=== PATIENT | male | born 1960 | race Caucasian/White ===

== ENCOUNTER 2022-03-26 11:04 | Outpatient (REF) | payer OTHER, SELFPAY ==
[2022-03-26 11:08] LABS: MANUAL DIFF FLAG NO
[2022-03-26 11:30] LABS: Basophils Percent Auto 0.7 % (0-2); Eosinophils Absolute Auto 0.1 X10*3/uL (0.0-0.4); Eosinophils Percent Auto 2.3 % (0-4); Hematocrit 47.5 % (42.0-52.0); Hemoglobin 15.4 g/dl (14.0-18.0); Imm Gran Abs Auto 0.01 X10*3/uL (0.00-0.03); Imm Gran Pct Auto 0.2 % (0.0-0.4); Lymphocytes Absolute Auto 2.4 X10*3/uL (1.2-4.9); Mean Corpuscular HGB Conc 32.4 g/dl (31.0-36.0); Mean Corpuscular Hemoglobin 29.1 pg (27.0-33.0); Mean Corpuscular Volume 89.8 fL (80.0-98.0); Mean Platelet Volume 12.1 fL (9.4-12.4); Monocytes Percent Auto 17.1 % (2-11); Neutrophils Absolute Auto 2.4 x10*3/uL (2.0-8.3); Neutrophils Percent Auto 39.7 % (45-73); Platelet Count 297 X10*3/uL (160-400); Red Blood Count 5.29 X10*6/uL (4.60-5.80); Red Cell Distribution Width 13.7 % (11.0-16.0)
[2022-03-26 11:46] LABS: Appearance Urine CLEAR; Color Urine YELLOW; Glucose Urine UA NEG (NEG); Leukocyte Esterase Urine NEG (NEG); Nitrite Urine NEG (NEG); PH 5.5 (5.0-8.0); Specific Gravity - Urine >= 1.030 (1.005-1.025); Urine Blood NEG (NEG); Urine Ketones NEG (NEG); Urine Protein NEG (NEG-TRACE)
[2022-03-26 12:02] LABS: Alanine Aminotransferase 12 U/L (0-40); Albumin Level 4.1 g/dL (3.5-5.0); Alkaline Phosphatase 60 U/L (39-117); Anion Gap 13 (12-20); Aspartate Amino Transferase 24 U/L (5-37); Bilirubin Total 0.4 mg/dL (0.0-1.0); Blood Urea Nitrogen 22 mg/dL (9-16); Calcium 9.5 mg/dL (8.4-10.2); Carbon Dioxide 28 mmol/L (22-29); Chloride 104 mmol/L (96-108); Cholesterol 176 mg/dL; Estimated Glomerular Filt Rate > 60; Glucose Fasting 96 mg/dL (60-99); HDL Cholesterol 51 mg/dL; LDL Cholesterol Calculated 108 mg/dl; PSA,Total (Free>4and<10) 0.69 ng/mL (0.00-4.00); Potassium 4.6 mmol/L (3.3-5.1); Sodium 140 mmol/L (135-145); Total Protein 7.3 g/dL (6.5-8.0); Triglycerides 89 mg/dL
[2022-03-26 12:08] LABS: Mucus Urine 2+ /LPF; RBC Urine 0 /HPF (0); WBC Urine 0-2 /HPF (0-4)
== END 2022-03-26 11:05 | disposition home or self-care (01) ==
LOC: HO.LNP 11:04
PROVIDERS: Visit Provider Internal Medicine
DX: Z00.00 Encounter for general adult medical examination without abnormal findings (principal); Z13.220 Encounter for screening for lipoid disorders; Z12.5 Encounter for screening for malignant neoplasm of prostate
CPT/HCPCS: 80053; 80061; 81001; 84153; 85025

== ENCOUNTER 2023-02-25 11:07 | Outpatient (REF) | payer OTHER, SELFPAY ==
[2023-02-25 11:10] LABS: MANUAL DIFF FLAG NO
[2023-02-25 11:45] LABS: Basophils Absolute Auto 0.1 X10*3/uL (0.0-0.2); Basophils Percent Auto 0.8 % (0-2); Eosinophils Absolute Auto 0.1 X10*3/uL (0.0-0.4); Eosinophils Percent Auto 1.9 % (0-4); Hematocrit 40.8 % (42.0-52.0); Hemoglobin 13.4 g/dl (14.0-18.0); Imm Gran Abs Auto 0.01 X10*3/uL (0.00-0.03); Imm Gran Pct Auto 0.2 % (0.0-0.4); Lymphocytes Absolute Auto 1.9 X10*3/uL (1.2-4.9); Lymphocytes Percent Auto 30.1 % (20-40); Mean Corpuscular HGB Conc 32.8 g/dl (31.0-36.0); Mean Corpuscular Hemoglobin 29.9 pg (27.0-33.0); Mean Corpuscular Volume 91.1 fL (80.0-98.0); Mean Platelet Volume 11.9 fL (9.4-12.4); Monocytes Percent Auto 15.9 % (2-11); Neutrophils Absolute Auto 3.3 x10*3/uL (2.0-8.3); Neutrophils Percent Auto 51.1 % (45-73); Platelet Count 235 X10*3/uL (160-400); Red Blood Count 4.48 X10*6/uL (4.60-5.80); Red Cell Distribution Width 13.4 % (11.0-16.0); White Blood Count 6.4 X10*3/uL (4.8-10.8)
[2023-02-25 11:46] LABS: Appearance Urine Clear; Color Urine Yellow; Glucose Urine UA Negative (Negative); Leukocyte Esterase Urine Trace (Negative); Nitrite Urine Negative (Negative); Specific Gravity - Urine 1.015 (1.005-1.025); UMIC TRIGGER UACC YES; Urine Blood Negative (Negative); Urine Ketones Negative (Negative); Urine Protein Negative (Neg-Trace)
[2023-02-25 11:50] LABS: Bacteria Urine None Seen (None Seen); Hyaline Casts Urine 0-2 /LPF (0-2); RBC Urine 0-2 /HPF (0-2); Squamous Epithelial Cell Urine 0-2 /HPF (0-2); WBC Urine 0-5 /HPF (0-5)
[2023-02-25 12:03] LABS: Alanine Aminotransferase 10 U/L (0-40); Albumin Level 3.9 g/dL (3.5-5.0); Alkaline Phosphatase 51 U/L (39-117); Anion Gap 12 (12-20); Aspartate Amino Transferase 23 U/L (5-37); Blood Urea Nitrogen 17 mg/dL (9-16); Calcium 9.7 mg/dL (8.4-10.2); Carbon Dioxide 29 mmol/L (22-29); Chloride 105 mmol/L (96-108); Cholesterol 189 mg/dL; Estimated Glomerular Filt Rate > 60; Glucose Fasting 87 mg/dL (60-99); HDL Cholesterol 67 mg/dL; LDL Cholesterol Calculated 106 mg/dl; Potassium 4.6 mmol/L (3.3-5.1); Sodium 141 mmol/L (135-145); Total Protein 6.7 g/dL (6.5-8.0); Triglycerides 84 mg/dL
[2023-02-25 12:27] LABS: PSA,Total (Free>4and<10) 0.97 ng/mL (0.00-4.00)
== END 2023-02-25 11:08 | disposition home or self-care (01) ==
LOC: HO.LNP 11:07
PROVIDERS: Visit Provider Internal Medicine
DX: Z00.00 Encounter for general adult medical examination without abnormal findings (principal); Z12.5 Encounter for screening for malignant neoplasm of prostate
CPT/HCPCS: 80053; 80061; 81001; 84153; 85025

== ENCOUNTER 2023-10-28 13:31 | Outpatient (AMB) | payer BC, SELFPAY ==
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
[2023-10-28 13:45] VITALS: BP 160/65; PULSE 64; BMI 29.7
== END 2023-10-28 14:21 | disposition home or self-care (01) ==
PROVIDERS: PCP Pediatrics; Referring Provider Internal Medicine; Visit Provider Surgery
DX: K64.1 Second degree hemorrhoids (principal)
CPT/HCPCS: 46600; 99204

== ENCOUNTER → 2023-10-28 13:31 | Outpatient (BNVA) | payer BC, SELFPAY | PROVIDERS: PCP Pediatrics; Referring Provider Internal Medicine; Visit Provider Surgery | DX: K64.1 Second degree hemorrhoids (principal) | CPT/HCPCS: 46600 ==

== ENCOUNTER 2023-11-11 11:30 | Outpatient (AMB) | payer BC, SELFPAY ==
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
[2023-11-11 11:41] VITALS: BP 148/87; PULSE 65
== END 2023-11-11 12:09 | disposition home or self-care (01) ==
PROVIDERS: PCP Pediatrics; Visit Provider Surgery
DX: K64.1 Second degree hemorrhoids (principal)
CPT/HCPCS: 46600; 99214

== ENCOUNTER → 2023-11-11 11:30 | Outpatient (BNVA) | payer BC, SELFPAY | PROVIDERS: PCP Pediatrics; Visit Provider Surgery | DX: K64.1 Second degree hemorrhoids (principal) | CPT/HCPCS: 46600 ==

== ENCOUNTER 2023-11-23 05:58 | Day surgery (SDC) | payer BC, SELFPAY ==
[2023-11-23] VITALS (8 sets, daily range): BP systolic 104–163; BP diastolic 71–91; PULSE 50–59; RESP 16–18; TEMP 36.2–36.4; O2SAT 97–100; BMI 28.7
[2023-11-23] MEDS: Lactated Ringers 1,000 ML 100 ML IVCONT (06:42)
--- NOTE | 2023-11-23 07:19 | HO.ANESPROP2 ---
HPI - Anesthesia Eval Consult details Narrative: for hemorrhoidectomy PMFSH Active Problems Active Problems: All Active Problems (Updated 10/28/23 @ 14:19 by Rodriguez Dupont MD) Bleeding grade II hemorrhoids (Acute) Family History Family history of problems with anesthesia: No Surgical History Surgical History History of bilateral total hip arthroplasty Hx of splenectomy History of Problems with Anesthesia: No Social History Social History Alcohol intake: current Alcohol intake frequency: holidays/special occasions only Patient Tobacco Use Status: Never used Tobacco Use of substances other than those prescribed or required for medical reasons: No Are you DNR?: No Advance Directives: No Advance Directives Information Provided: Yes Meds Allergies Allergy/AdvReac Type Severity Reaction Status Date / Time hydromorphone [From Dilaudid] AdvReac Nausea Verified 11/23/23 06:17 Active Medications: Current Medications Lactated Ringer's (Lr) 1,000 mls @ 100 mls/hr IVCONT .Q10H FRANCISCO Last Admin: 11/23/23 06:42 Dose: 100 mls/hr Exam Height,Weight and Vital Signs: Height 5 ft 3.5 in Weight 74.797 kg Last Vital Signs Temp 97.2 F 11/23/23 06:22 Pulse 59 11/23/23 06:22 Resp 18 11/23/23 06:22 BP 163/91 H 11/23/23 06:22 Pulse Ox 100 11/23/23 06:22 O2 Del Method Room Air 11/23/23 06:22 Airway Mallampati Class: I TM Dist: >3cm Neck ROM: Full Loose/Missing/Broken Teeth: No Heart: ok Lungs: ok Assessment and Plan Assessment Anesthesia Assessment: Anesthesia Plan Discussed and Chart Reviewed Final Anesthetic Review Family History of Problems with Anesthesia: No History of Problems with Anesthesia: No NPO: Yes ASA Class: II Final Preanesthetic Review: No Changes in Pt Med Stat, Meds/Allgs Chart Reviewed, Consent Obtained/Reviewed and Anes Risks/Benef Reviewed Patient Risk: Low Procedure Risk: Low Anesthetic Plan Anesthetic Plan: GA and Agree w/ Assess. and Plan Disposition: Standard PACU
--- NOTE | 2023-11-23 07:20 | MHC.SHP ---
Pre-Procedural Eval Section A - 24 Hr Update-Section A only Date of Service: 11/23/23 The patient is an INPATIENT: No Changes since office visit: Yes Patient answered all questions; No Cold of Flu in the past 2 weeks, No New Medical Problems and No Changes in Medication The patient has been examined within 24 hours of the surgical procedure. The History & Physical has been completed within 30 days and I have reviewed it.: Yes Section B - Complete if H&P > 30 days Chief Complaint: Second degree hemorrhoids Allergies: Allergies Allergy/AdvReac Type Severity Reaction Status Date / Time hydromorphone [From Dilaudid] AdvReac Nausea Verified 11/23/23 06:17 Plan Diagnosis/Plan: Unchanged I have reviewed the history and physical and performed a pertinent physical examination on my patient. No changes have occurred unless specified. Time Spent With Patient Time: Total time managing care of this patient today ____ minutes.
--- NOTE | 2023-11-23 08:16 | P.OP_ITS ---
Operative Note Operative Note Date of Service: 11/23/23 Narrative: Preoperative diagnosis: Bleeding hemorrhoid Postoperative diagnosis: Same Procedure: Hemorrhoidectomy Surgeon: Rodriguez Dupont MD Certified Medical Technician: DAFNE [place] Anesthesia: General LMA Indications for procedure: 63-year-old male patient presenting with complaints of bleeding hemorrhoids especially while at work. He had several episodes of heavy bleeding. On examination he is found to have a single large posterior wall hemorrhoid. Hemorrhoid was found to be too sensitive to allow for banding in the office. Operative findings: Large hemorrhoid in the posterior wall. Specimen: Hemorrhoids Estimated blood loss: 2 mL Complications: None Procedure details: Patient was brought to the OR and placed in a prone position. After administering general anesthesia, the patient's perianal region was prepped with Betadine and draped in a sterile fashion. A surgical time-out was called the consent confirmed. Patient received preoperative antibiotics and Venodyne boots were in place. Local anesthesia was infiltrated in the posterior wall adjacent to the hemorrhoid. An anoscope was inserted and the hemorrhoid identified. This was then grasped with a triangular clamp. A Susan clamp was then placed at the base of the hemorrhoid. A running locked 3-0 chromic suture was then placed below the Susan clamp using a baseball-type stitch. The hemorrhoid was then excised and sent to pathology for further examination. The suture was then run backward in a running lock stitch to assure adequate hemostasis. Good hemostasis was achieved at the end of the procedure. Anal region was examined once again and no additional hemorrhoids were identified. Packing of 4 x 4 gauze and Xeroform was then inserted into the anal canal. This was then covered with a 4 x 4 gauze and ABD. The patient tolerated the procedure well. He is welcome from anesthesia and placed in a supine position. Sponge, instrument, and needle counts reported as correct. Transferred to PACU in stable condition.
== END 2023-11-23 09:59 | disposition home or self-care (01) ==
PROVIDERS: PCP Internal Medicine; Visit Provider Surgery
PROC: (CPT 46255; principal; 2023-11-23 07:30)
DX: K64.1 Second degree hemorrhoids (principal); Z90.81 Acquired absence of spleen; Z98.890 Other specified postprocedural states; Z88.5 Allergy status to narcotic agent; Z79.899 Other long term (current) drug therapy
CPT/HCPCS: 46255; 88304; J0665; J1885; J2405; J2704; J3010

== ENCOUNTER → 2023-11-23 05:58 | Outpatient (BNV) | payer BC, SELFPAY | PROVIDERS: PCP Internal Medicine; Visit Provider Surgery | DX: K64.1 Second degree hemorrhoids (principal) | CPT/HCPCS: 46255 ==

== ENCOUNTER 2023-12-01 14:59 | Outpatient (AMB) | payer BC, SELFPAY ==
--- NOTE | 2023-12-01 15:01 | A.OFFVIS_ITS ---
Intake Vital Signs 12/01/23 15:07 Height 5 ft 3.5 in Weight 167 lb BMI 29.1 BP 156/90 H Blood Pressure Location Lt brachial Position Sitting Pulse 100 Intake Visit Reasons: S/P hemorrhoidectomy Intake Note: Patient is seen in office for post op assessment post hemorrhoidectomy. 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 He had several episodes of bleeding postoperatively however denies any bleeding since Tuesday. He is moving his bowels on a daily basis and has some pain with bowel movements. Overall he feels improved. He is planning on returning to work next , 12/08/2023. [facility] Surgical History H/O: hemorrhoidectomy (11/23/23) History of bilateral total hip arthroplasty Hx of splenectomy Social History Alcohol intake: current Alcohol intake frequency: holidays/special occasions only Patient Tobacco Use Status: Never used Tobacco Physical Exam Vital Signs: Last Vital Signs Pulse 100 12/01/23 15:07 BP 156/90 H 12/01/23 15:07 BMI result Body Mass Index 29.1 Const General: no acute distress GI Other: Rectal examination reveals clean perirectal skin with no erythema and no evidence of bleeding. Skin Other: Warm, dry, no rashes Assessment & Plan Assessment & Plan (1) Bleeding grade II hemorrhoids: Code(s): K64.1 - Second degree hemorrhoids Plan Patient returns 1 week following hemorrhoidectomy. His wounds are clean and intact without evidence of infection. He should continue with the warm soaks at least daily. He should follow up in 1 month for a final postoperative visit. Coding Level of Care Code Global (19020) Diagnoses Bleeding grade II hemorrhoids K64.1
[2023-12-01 15:07] VITALS: BP 156/90; PULSE 100; BMI 29.1
== END 2023-12-01 15:19 | disposition home or self-care (01) ==
PROVIDERS: PCP Pediatrics; Visit Provider Surgery
DX: K64.1 Second degree hemorrhoids (principal)
CPT/HCPCS: 99024

== ENCOUNTER → 2023-12-01 14:59 | Outpatient (BNVA) | payer BC, SELFPAY | PROVIDERS: PCP Pediatrics; Visit Provider Surgery ==

== ENCOUNTER 2023-12-29 15:08 | Outpatient (AMB) | payer BC, SELFPAY ==
--- NOTE | 2023-12-29 15:20 | MHC.OFFVIS ---
Vital Signs 12/29/23 15:25 Height 5 ft 3.5 in Weight 164 lb 8 oz BMI 28.7 BP 156/96 H Blood Pressure Location Lt brachial Position Sitting Pulse 71 Intake Visit Reasons: one month post hemorrhoidectomy Intake Note: Patient is seen in office for one month follow up visit, one month post hemorrhoidectomy. 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 He did have 1 episode of bleeding 1 week ago after lifting many cami of hay. This quickly stopped and he has had no further bleeding since this time. He denies any pain and reports normal bowel movements. [facility] Surgical History H/O: hemorrhoidectomy (11/23/23) History of bilateral total hip arthroplasty Hx of splenectomy Social History Alcohol intake: current Alcohol intake frequency: holidays/special occasions only Patient Tobacco Use Status: Never used Tobacco Physical Exam Vital Signs: Last Vital Signs Pulse 71 12/29/23 15:25 BP 156/96 H 12/29/23 15:25 BMI result Body Mass Index 28.7 Const General: no acute distress Nutritional Appearance: well nourished Orientation/consciousness: patient oriented x3 Resp Effort & Inspection: normal respiratory effort GI Other: Rectal exam deferred Inspection: Yes normal to inspection Neuro General: patient oriented x3 Extrem General: Yes no clubbing, cyanosis or edema Assessment & Plan Assessment & Plan (1) Bleeding grade II hemorrhoids: Code(s): K64.1 - Second degree hemorrhoids Category: Medical Plan Patient returns 1 month following hemorrhoidectomy for bleeding hemorrhoids. He had 1 episode of bleeding after performing heavy lifting at home but has had no further bleeding since then. In generally feels much improved and denies any pain or difficulty with bowel movements. He should follow up as needed. Coding Level of Care Code Global (50463) Diagnoses Bleeding grade II hemorrhoids K64.1
[2023-12-29 15:25] VITALS: BP 156/96; PULSE 71; BMI 28.7
== END 2023-12-29 15:31 | disposition home or self-care (01) ==
PROVIDERS: PCP Pediatrics; Visit Provider Surgery
DX: K64.1 Second degree hemorrhoids (principal)
CPT/HCPCS: 99024

== ENCOUNTER → 2023-12-29 15:08 | Outpatient (BNVA) | payer BC, SELFPAY | PROVIDERS: PCP Pediatrics; Visit Provider Surgery | DX: K64.1 Second degree hemorrhoids (principal) ==

== ENCOUNTER 2024-02-28 11:39 | Outpatient (REF) | payer BC, SELFPAY ==
[2024-02-28 11:42] LABS: MANUAL DIFF FLAG NO
[2024-02-28 12:21] LABS: Basophils Absolute Auto 0.1 X10*3/uL (0.0-0.2); Basophils Percent Auto 0.8 % (0-2); Eosinophils Absolute Auto 0.2 X10*3/uL (0.0-0.4); Eosinophils Percent Auto 2.7 % (0-4); Hematocrit 42.1 % (42.0-52.0); Imm Gran Abs Auto 0.01 X10*3/uL (0.00-0.03); Imm Gran Pct Auto 0.1 % (0.0-0.4); Lymphocytes Absolute Auto 2.9 X10*3/uL (1.2-4.9); Lymphocytes Percent Auto 34.8 % (20-40); Mean Corpuscular HGB Conc 33.3 g/dl (31.0-36.0); Mean Corpuscular Hemoglobin 29.8 pg (27.0-33.0); Mean Corpuscular Volume 89.6 fL (80.0-98.0); Mean Platelet Volume 12.5 fL (9.4-12.4); Monocytes Absolute Auto 1.2 X10*3/uL (0.1-1.2); Monocytes Percent Auto 14.1 % (2-11); Neutrophils Percent Auto 47.5 % (45-73); Platelet Count 250 X10*3/uL (160-400); Red Cell Distribution Width 14.6 % (11.0-16.0); White Blood Count 8.4 X10*3/uL (4.8-10.8)
[2024-02-28 12:38] LABS: Alanine Aminotransferase 9 U/L (0-40); Alkaline Phosphatase 54 U/L (39-117); Anion Gap 11 (12-20); Aspartate Amino Transferase 23 U/L (5-37); Bilirubin Total 0.7 mg/dL (0.0-1.0); Blood Urea Nitrogen 18 mg/dL (9-16); Calcium 9.7 mg/dL (8.4-10.2); Carbon Dioxide 29 mmol/L (22-29); Chloride 105 mmol/L (96-108); Cholesterol 194 mg/dL (<200); Estimated Glomerular Filt Rate > 60; Glucose Fasting 92 mg/dL (60-99); HDL Cholesterol 66 mg/dL (>40); LDL Cholesterol Calculated 108 mg/dL (<100); Sodium 141 mmol/L (135-145); Total Protein 7.4 g/dL (6.5-8.0); Triglycerides 103 mg/dL (<150)
[2024-02-28 12:50] LABS: Appearance Urine Clear; Color Urine Yellow; Glucose Urine UA Negative (Negative); Leukocyte Esterase Urine Trace (Negative); Nitrite Urine Negative (Negative); PH 7.5 (5.0-9.0); Specific Gravity - Urine 1.015 (1.005-1.025); UMIC TRIGGER UACC YES; Urine Blood Negative (Negative); Urine Ketones Negative (Negative); Urine Protein Negative (Neg-Trace)
[2024-02-28 12:54] LABS: Bacteria Urine None Seen (None Seen); Hyaline Casts Urine 0-2 /LPF (0-2); RBC Urine 0-2 /HPF (0-2); Squamous Epithelial Cell Urine 0-2 /HPF (0-2); WBC Urine 0-5 /HPF (0-5)
[2024-02-28 12:55] LABS: PSA,Total (Free>4and<10) 1.08 ng/mL (0.00-4.00)
== END 2024-02-28 11:40 | disposition home or self-care (01) ==
LOC: HO.LNP 11:39
PROVIDERS: Visit Provider Internal Medicine
DX: Z00.00 Encounter for general adult medical examination without abnormal findings (principal); Z12.5 Encounter for screening for malignant neoplasm of prostate
CPT/HCPCS: 80053; 80061; 81001; 84153; 85025

== ENCOUNTER 2024-04-27 09:19 | Day surgery (SDC) | payer BC, SELFPAY ==
[2024-04-25 15:24] VITALS: BMI 28.0
--- NOTE | 2024-04-26 12:28 | P.CONAN_ITS ---
Documented by User: Elaina Perez NP 04/26/24 12:28 HPI - Anesthesia Eval Consult details Narrative: 63yo M for Colonoscopy [facility] Active Problems Active Problems: All Active Problems Bleeding grade II hemorrhoids (Acute) Past Medical History Medical History No pertinent past medical history Family History Family history of problems with anesthesia: No Surgical History Surgical History History of hemorrhoidectomy S/P colon resection Hx of hernia repair History of bilateral total hip arthroplasty Hx of splenectomy History of Problems with Anesthesia: No Social History Social History (Updated 04/25/24 @ 15:19 by Aleksandra Wallace RN) Household Members: Spouse Alcohol intake: current Alcohol intake frequency: holidays/special occasions only Patient Tobacco Use Status: Never used Tobacco Use of substances other than those prescribed or required for medical reasons: No Have you been hit, kicked, punched, or otherwise hurt by someone within the past year? If so, by whom?: No Are you DNR?: No Advance Directives: No Advance Directives Information Provided: Yes Recently lost weight without trying: No Nutrition Risks: No Nutritional Risk Poor oral hygiene: No Meds Allergies Allergy/AdvReac Type Severity Reaction Status Date / Time hydromorphone [From Dilaudid] AdvReac Nausea Verified 04/27/24 09:34 Home Medications ?Medication ?Instructions ?Recorded ?Confirmed ?Last Taken ?Type No Known Home Meds 04/25/24 04/27/24 Unknown History Exam Height,Weight and Vital Signs: Height 5 ft 3 in Weight 71.668 kg Assessment and Plan Assessment Anesthesia Assessment: Chart Reviewed Final Anesthetic Review Family History of Problems with Anesthesia: No History of Problems with Anesthesia: No Documented by User: Charlie Smith MD 04/27/24 10:06 [facility] Past Medical History Medical History No pertinent past medical history Surgical History Surgical History History of hemorrhoidectomy S/P colon resection Hx of hernia repair History of bilateral total hip arthroplasty Hx of splenectomy Social History Social History (Updated 04/25/24 @ 15:19 by Aleksandra Wallace RN) Household Members: Spouse Alcohol intake: current Alcohol intake frequency: holidays/special occasions only Patient Tobacco Use Status: Never used Tobacco Use of substances other than those prescribed or required for medical reasons: No Have you been hit, kicked, punched, or otherwise hurt by someone within the past year? If so, by whom?: No Are you DNR?: No Advance Directives: No Advance Directives Information Provided: Yes Recently lost weight without trying: No Nutrition Risks: No Nutritional Risk Poor oral hygiene: No Meds Allergies Allergy/AdvReac Type Severity Reaction Status Date / Time hydromorphone [From Dilaudid] AdvReac Nausea Verified 04/27/24 09:34 Home Medications ?Medication ?Instructions ?Recorded ?Confirmed ?Last Taken ?Type No Known Home Meds 04/25/24 04/27/24 Unknown History Exam Airway Mallampati Class: I TM Dist: >3cm Neck ROM: Full Loose/Missing/Broken Teeth: No Heart: ok Lungs: ok Assessment and Plan Assessment Anesthesia Assessment: Anesthesia Plan Discussed Final Anesthetic Review NPO: Yes ASA Class: II Final Preanesthetic Review: No Changes in Pt Med Stat, Meds/Allgs Chart Reviewed, Consent Obtained/Reviewed and Anes Risks/Benef Reviewed Patient Risk: Low Procedure Risk: Low Anesthetic Plan Anesthetic Plan: MAC: and Agree w/ Assess. and Plan Disposition: Standard PACU
[2024-04-27 09:29] VITALS: BMI 26.9
[2024-04-27] MEDS: Lactated Ringers 1,000 ML 100 ML IVCONT (09:42)
[2024-04-27 09:43] VITALS: BP 170/78; PULSE 46; RESP 16; TEMP 36.1; O2SAT 100
--- NOTE | 2024-04-27 10:31 | MHC.SHP ---
Pre-Procedural Eval Section A - 24 Hr Update-Section A only Date of Service: 04/27/24 Section B - Complete if H&P > 30 days Chief Complaint: Encounter for screening for malignant neoplasm of Details of Present Illness: see H&P no changes Relevant Family History (Specify if Yes): No Relevant Social History: None Medical History: No relevant PMH Allergies: Allergies Allergy/AdvReac Type Severity Reaction Status Date / Time hydromorphone [From Dilaudid] AdvReac Nausea Verified 04/27/24 09:34 Review of Systems Sugical H&P ROS: Negative: Constitution, Cardiovascular, Respiratory, Neurological, Psychiatric, Hem-Onc, Allergic/Immunologic, Gastrointestinal, Genitourinary, Musculoskeletal, Integumentary, Endocrine and Eyes/Ears/Nose/Throat Exam Surgical H&P Exam: Normal: HEENT, Normal: Heart, Normal: Lungs, Normal: Extremities, Normal: Abdomen, Normal: Skin and Normal: Neurological Plan Diagnosis/Plan: Unchanged I have reviewed the history and physical and performed a pertinent physical examination on my patient. No changes have occurred unless specified. Time Spent With Patient Time: Total time managing care of this patient today ____ minutes.
[2024-04-27 10:34] VITALS: BP 97/56; PULSE 62; RESP 18; TEMP 36.2; O2SAT 97
[2024-04-27 10:51] VITALS: BP 111/77; PULSE 58; RESP 18; TEMP 36.3; O2SAT 97
--- NOTE | 2024-04-27 10:58 | OP_ITS ---
DATE OF SERVICE: 04/27/2024 SURGEON: Singh Samuels MD INDICATIONS: Colon cancer screening and prior history of polyps. PREOPERATIVE DIAGNOSIS: POSTOPERATIVE DIAGNOSIS: PROCEDURE PERFORMED: Colonoscopy to the terminal ileum with biopsy. ESTIMATED BLOOD LOSS: COMPLICATIONS: ANESTHESIA: Monitored anesthesia care. ASSISTANTS: SPECIMENS: DESCRIPTION OF PROCEDURE: A history and physical was performed. The risks and benefits of the procedure were explained to the patient and informed consent was obtained. The patient was placed in a left lateral decubitus position. A digital rectal exam was performed and was found to be normal. The Olympus pediatric video colonoscope was introduced into the rectum and advanced to the cecum. The cecum was identified by transillumination, palpation, and identification of ileocecal valve. Examination was performed and the scope was removed. He tolerated the procedure well and was returned to recovery area in stable condition. FINDINGS: The terminal ileum was examined and appeared normal. The visualized colonic mucosa was normal. The quality of the prep was good. Two polyps were identified and removed with biopsy forceps, both measured less than 5 mm. These were located in the right colon and at 60 cm. No other polyps were identified. Retroflexed examination showed [id number] internal hemorrhoids. IMPRESSION: Colon polyps. RECOMMENDATION: Follow up the biopsy results. MD OVIDIO Hutchins/RAYSA / [id number]
== END 2024-04-27 11:00 | disposition home or self-care (01) ==
PROVIDERS: PCP Internal Medicine; Visit Provider Internal Medicine Gastroenterology
PROC: 0DJD8ZZ Inspection of Lower Intestinal Tract, Via Natural or Artificial Opening Endoscopic (ICD-10-PCS; CPT 45378; principal; 2024-04-27 10:50)
DX: Z12.11 Encounter for screening for malignant neoplasm of colon (principal); Z86.010 Personal history of colon polyps; D12.4 Benign neoplasm of descending colon; K63.5 Polyp of colon; K64.8 Other hemorrhoids; K86.81 Exocrine pancreatic insufficiency; Z90.411 Acquired partial absence of pancreas; Z90.49 Acquired absence of other specified parts of digestive tract; Z90.81 Acquired absence of spleen; Z98.890 Other specified postprocedural states; Z88.5 Allergy status to narcotic agent
CPT/HCPCS: 45380; 88305; J2704

== ENCOUNTER 2024-09-19 08:49 | Outpatient (AMB) | payer BC, SELFPAY ==
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
[2024-09-19 09:03] VITALS: BMI 30.1
--- OUTSIDE RECORDS SUMMARY | 2024-09-19 09:05 | XMS_ITS ---
Author Organization [facility] Address [address] [place] [address] Care Team Providers Care Rn Hemodialysis Name Role Phone Amador Menon MD Primary Care Provider Singh Saldana Jr REASON FOR VISIT screening Encounters Encounter Location Date Provider Diagnosis [facility] [place] Out[place] [address] [place], [place] [id number] 04/27/2024 Singh Samuels Jr Colon cancer screening Z12.11 and Colon polyps K63.5 ASSESSMENTS Encounter Date Diagnosis Assessment Notes Treatment Notes Treatment Clinical Notes 04/27/2024 Colon cancer screening (ICD-10 - Z12.11) 04/27/2024 Colon polyps (ICD-10 - K63.5) PLAN OF TREATMENT No Information
--- OUTSIDE RECORDS SUMMARY | 2024-09-19 09:05 | XMS_ITS ---
Author Organization [facility] Address [address] [place] [address] Care Team Providers Care Production Lapping Machine Operator Name Role Phone Amador Menon MD Primary Care Provider Singh Saldana Jr [phone] ALLERGIES No Known Allergies REASON FOR VISIT Patient presents today for a discuss colonoscopy SOCIAL HISTORY Tobacco Use: Social History Observation Description Date Details (start date - stop date) Never Smoker NA - NA Sex Assigned At : Social History Observation Description Sex Assigned At Unknown Tobacco Use/Smoking Question Answer Notes Patient is a nonsmoker Alcohol Screen Question Answer Notes Did you have a drink contain ing alcohol in the past year? Yes How often did you have a dri nk containing alcohol in the past year? 2 to 3 times a week (3 points) How many drinks did you have on a typical day when you were drinking in the past year? 1 or 2 drinks (0 point) How often did you have 6 or more drinks on one occasion in the past year? Never (0 point) Points 3 Interpretation Negative PROBLEMS Problem Type ICD Code Onset Dates Problem Status W/U Status Risk SNOMED Code Notes Problem Colon cancer screening (Z12.11) Active confirmed 888087784 Problem Rectal bleeding (K62.5) Active confirmed 29701943 Problem Hemorrhoids, unspecified hemorrhoid type (K64.9) Active confirmed 22971027 VITAL SIGNS BMI 27.99 kg/m2 03/07/2024 Blood pressure systolic 000 mm Hg 03/07/20 24 Blood pressure diastolic 00 mm Hg 024 Height 5 ft 3 in in 03/07/2024 Temperature 97.3 degrees Fahrenheit 07/10/20 24 Weight 158 lbs 03/07/2024 Encounters Encounter Location Date Provider Diagnosis [facility] [address] [place] [address] 03/07/2024 Singh Samuels Jr Colon cancer screening Z12.11 ; Rectal bleeding K62.5 and Hemorrhoids, unspecified hemorrhoid type K64.9 ASSESSMENTS Encounter Date Diagnosis Assessment Notes Treatment Notes Treatment Clinical Notes 03/07/2024 Colon cancer screening (ICD-10 - Z12.11) 03/07/2024 Rectal bleeding (ICD-10 - K62.5) Colonoscopy material was printed 03/07/2024 Hemorrhoids, unspecified hemorrhoid type (ICD-10 - K64.9) PLAN OF TREATMENT Treatment Notes Assessment Notes Rectal bleeding Colonoscopy material was printed Future Test Test Name Order Date COLONOSCOPY 03/07/2024 Next Appt Details Follow Up: 1 Year, Reason: Progress Notes * Examination Category Sub-Category Detail Notes General Examination GENERAL APPEARANCE: in no ac tamika distress HEAD: normocephalic EYES: sclera non-icteric NECK/THYROID: no lymphadenopathy HEART: S1, S2 normal, no mu rmurs CHEST: normal shape and exp ansion LUNGS: clear to auscultatio n bilaterally ABDOMEN: soft, nontender, non distended, bowel sounds present, no organomegaly SKIN: anicteric EXTREMITIES: no clubbing, cyanosi s, or edema PSYCH: cognitive function i ntact ORAL CAVITY: mucosa moist
--- OUTSIDE RECORDS SUMMARY | 2024-09-19 09:05 | XMS_ITS ---
Author Organization [facility] Address [address] [place] [address] Care Team Providers Care Video Production Assistant Name Role Phone Amador Menon MD Primary Care Provider Singh Saldana Jr REASON FOR VISIT pathology Encounters Encounter Location Date Provider Diagnosis [facility] [address] [place] [address] 05/09/2024 Singh Samuels Jr PLAN OF TREATMENT No Information
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
== END 2024-09-19 09:23 | disposition home or self-care (01) ==
PROVIDERS: PCP Internal Medicine; Referring Provider Internal Medicine; Visit Provider Surgery
DX: K40.90 Unilateral inguinal hernia, without obstruction or gangrene, not specified as recurrent (principal)
CPT/HCPCS: 99214

== ENCOUNTER 2024-10-11 05:59 | Day surgery (SDC) | payer BC, SELFPAY ==
[2024-10-09 14:14] VITALS: BMI 30.1
--- NOTE | 2024-10-10 10:04 | HO.ANESPROP2 ---
Documented by User: Elaina Perez NP 10/10/24 10:04 HPI - Anesthesia Eval Consult details Narrative: 64yo M for Right Hernia Inguinal Reducible with mesh PMFSH Active Problems Active Problems: All Active Problems Reducible right inguinal hernia (Acute) Bleeding grade II hemorrhoids (Acute) Past Medical History Medical History No pertinent past medical history Family History Family history of problems with anesthesia: No Surgical History Surgical History Hx of colonoscopy (03/2024) History of hemorrhoidectomy (10/2023) S/P colon resection Hx of hernia repair History of bilateral total hip arthroplasty Hx of splenectomy History of Problems with Anesthesia: No Social History Social History Household Members: Spouse Alcohol intake: current Alcohol intake frequency: holidays/special occasions only Patient Tobacco Use Status: Never used Tobacco Advance Directives: No Advance Directives Information Provided: Yes Meds Allergies Allergy/AdvReac Type Severity Reaction Status Date / Time hydromorphone [From Dilaudid] AdvReac Nausea Verified 09/19/24 09:10 Home Medications ?Medication ?Instructions ?Recorded ?Confirmed ?Last Taken ?Type ketoconazole 2 % topical cream appl topical DAILY 09/19/24 09/19/24 Unknown History Exam Height,Weight and Vital Signs: Height 5 ft 3 in Weight 77.111 kg Assessment and Plan Assessment Anesthesia Assessment: Chart Reviewed Final Anesthetic Review Family History of Problems with Anesthesia: No History of Problems with Anesthesia: No Documented by User: Pati Lowe MD 10/11/24 07:28 PMFSH Past Medical History Medical History No pertinent past medical history Surgical History Surgical History Hx of colonoscopy (03/2024) History of hemorrhoidectomy (10/2023) S/P colon resection Hx of hernia repair History of bilateral total hip arthroplasty Hx of splenectomy Social History Social History Household Members: Spouse Alcohol intake: current Alcohol intake frequency: holidays/special occasions only Patient Tobacco Use Status: Never used Tobacco Advance Directives: No Advance Directives Information Provided: Yes Meds Allergies Allergy/AdvReac Type Severity Reaction Status Date / Time hydromorphone [From Dilaudid] AdvReac Nausea Verified 09/19/24 09:10 Home Medications ?Medication ?Instructions ?Recorded ?Confirmed ?Last Taken ?Type ketoconazole 2 % topical cream appl topical DAILY 09/19/24 09/19/24 Unknown History Exam Airway Mallampati Class: II TM Dist: >3cm Neck ROM: Full Loose/Missing/Broken Teeth: No Heart: RRR Lungs: CTA Assessment and Plan Assessment Anesthesia Assessment: Anesthesia Plan Discussed Final Anesthetic Review NPO: Yes ASA Class: II Final Preanesthetic Review: Meds/Allgs Chart Reviewed, Consent Obtained/Reviewed and Anes Risks/Benef Reviewed Patient Risk: Low Procedure Risk: Low Anesthetic Plan Anesthetic Plan: GA Disposition: Standard PACU
--- OUTSIDE RECORDS SUMMARY | 2024-10-11 06:01 | XMS_ITS ---
Author Organization [facility] Address [address] [place] [address] Care Team Providers Care Counting Machine Operator Name Role Phone Amador Menon MD Primary Care Provider Singh Saldana Jr REASON FOR VISIT pathology Encounters Encounter Location Date Provider Diagnosis [facility] [address] [place] [address] 05/09/2024 Singh Samuels Jr PLAN OF TREATMENT No Information
--- OUTSIDE RECORDS SUMMARY | 2024-10-11 06:02 | XMS_ITS ---
Author Organization [facility] Address [address] [place] [address] Care Team Providers Care Business Planning Manager Name Role Phone Amador Menon MD Primary Care Provider Singh Saldana Jr [phone] REASON FOR VISIT screening Encounters Encounter Location Date Provider [place] [facility] [place] [address] [place], [place] [phone] 04/27/2024 Singh Samuels Jr Colon cancer screening Z12.11 and Colon polyps K63.5 ASSESSMENTS Encounter Date Diagnosis Assessment Notes Treatment Notes Treatment Clinical Notes 04/27/2024 Colon cancer screening (ICD-10 - Z12.11) 04/27/2024 Colon polyps (ICD-10 - K63.5) PLAN OF TREATMENT No Information
--- OUTSIDE RECORDS SUMMARY | 2024-10-11 06:02 | XMS_ITS | Patient Health Record ---
Author Organization Amador Menon MD Address [address] [place] [id number] Care Team Providers Care Geotechnical Operating Engineer Name Role Phone Amador Menon Primary Care Provider [phone] Allergies No Known Allergies Results Component Value Reference Range Notes Pathology Reviewed date:11/24/2023 12:43:58 PM Interpretation: Performing Lab:[facility], [address] [place] [phone] Notes/Report: Name: Andrea Boswell Age/Sex: 63/M : 1960 Unit#: [id number] Attend Dr: Rodriguez Dupont MD Re11/23/23 Status: [facility] Location: [facility] Disch: SPEC : [id number] RECD: 11/23/23 STATUS: CAROLYNE LANCASTER NUM: [id number] RONEN: 11/23/23 [facility] DR: Rodriguez Dupont MD ENTERED: 11/23/23 SP TYPE: Surgical OTHR DR: Amador Menon MD ORDERED: Gross Micro L3 Diagnosis Hemorrhoid, hemorrhoidectomy: Benign squamous and rectal mucosa with underlying ectatic and irregular vessels consistent with hemorrhoids. Clinical History Second degree hemorrhoids Microscopic Description Microscopic sections reviewed. Material Received Hemorrhoid Gross Description Received in formalin labeled ?hemorrhoid? is a 2.3 x 0.5-1.0 x 0.45 cm edematous and erythematous, golden-salmon and salmon-pink portion of rectoanal mucosa and submucosa which is focally eroded and velvety. The margins are inked and the specimen is sectioned to reveal edematous, salmon-pink cut surfaces, entirely submitted in a cassette labeled A. CEDS Copies To: Amador Menon MD [address] [place] [id number] Rodriguez Dupont MD [address] [place] [address] [place] [address] Signed (signature on file) [place] 11/24/23 1233 END OF REPORT Complete Blood Count Auto Di ff Reviewed date:02/28/2024 04:20:23 PM Interpretation: Performing Lab:[facility], [address] [place] [phone] Notes/Report: White Blood Count 8.4 4.8-10.8 X10*3/uL Red Blood Count 4.70 4.60-5.80 X10*6/uL Hemoglobin 14.0 14.0-18.0 g/dl Hematocrit 42.1 42.0-52.0 % Mean Corpuscular Volume 89.6 80.0-98.0 fL Mean Corpuscular Hemoglobin 29.8 27.0-33.0 pg Mean Corpuscular HGB Conc 33.3 31.0-36.0 g/dl Red Cell Distribution Width 14.6 11.0-16.0 % Platelet Count 250 160-400 X10*3/uL Mean Platelet Volume 12.5 9.4-12.4 fL Neutrophils Percent Auto 47.5 45-73 % Imm Gran Pct Auto 0.1 0.0-0.4 % Lymphocytes Percent Auto 34.8 20-40 % Monocytes Percent Auto 14.1 2-11 % Eosinophils Percent Auto 2.7 0-4 % Basophils Percent Auto 0.8 0-2 % NRBC Pct Auto 0.0 0.0-0.2 /100WBC Neutrophils Absolute Auto 4.0 2.0-8.3 x10*3/u L Imm Gran Abs Auto 0.01 0.00-0.03 X10*3/uL Lymphocytes Absolute Auto 2.9 1.2-4.9 X10*3/u L Monocytes Absolute Auto 1.2 0.1-1.2 X10*3/uL Eosinophils Absolute Auto 0.2 0.0-0.4 X10*3/u L Basophils Absolute Auto 0.1 0.0-0.2 X10*3/uL NRBC Abs Auto 0.000 0.0-0.012 X10*3/uL Comprehensive [place]. Panel Fa st Reviewed date:02/28/2024 12:46:16 PM Interpretation: Performing Lab:[facility], [address] [place] [phone] Notes/Report: Sodium 141 135-145 mmol/L Potassium 4.0 3.3-5.1 mmol/L Chloride 105 96-108 mmol/L Carbon Dioxide 29 22-29 mmol/L Anion Gap 11 12-20 Blood Urea Nitrogen 18 9-16 mg/dL Creatinine 0.81 0.5-1.4 mg/dL Estimated Glomerular Filt Rate > 60 NOTE: For -[place] individuals, multiply the result by 1.210. Chronic Kidney Disease: Estimated GFR < 60 mL/min/1.73m2 Severe Kidney Disease: Estimated GFR < 15 mL/min/1.73m2 Glucose Fasting 92 60-99 mg/dL Calcium 9.7 8.4-10.2 mg/dL Bilirubin Total 0.7 0.0-1.0 mg/dL Aspartate Amino Transferase 23 5-37 U/L Alanine Aminotransferase 9 0-40 U/L Total Protein 7.4 6.5-8.0 g/dL Albumin Level 4.0 3.5-5.0 g/dL Alkaline Phosphatase 54 39-117 U/L Lipid Panel Reviewed date:02/28/2024 12:41:23 PM Interpretation: Performing Lab:[facility], [address] [place] [phone] Notes/Report: Triglycerides 103 <150 mg/dL Desirable Triglyceride: less than 150 mg/dL Borderline High Triglyceride 150-199 mg/dL High Triglyceride: 200-499 mg/dL Very High Triglyceride: greater than or equal to 5OO mg/dL Cholesterol 194 <200 mg/dL Desirable Cholesterol: less than 200 mg/dL Borderline High Cholesterol: 200-239 mg/dL High Cholesterol: greater than 239 mg/dL LDL Cholesterol Calculated 108 <100 mg/dL Desirable LDL: less than 100 mg/dL Near Optimal/Above Optimal LDL: 110-129 mg/dL Borderline High LDL: 130-159 mg/dL High LDL: 160-189 mg/dL Very High LDL: greater than or equal to 190 mg/dL HDL Cholesterol 66 >40 mg/dL Desirable HDL: greater than 40 mg/dL Note: This HDL assay may give artificially low results in patients with liver disease. PSA,Total (Free>4and<10) Reviewed date:02/28/2024 02:53:01 PM Interpretation: Performing Lab:[address] [phone] Notes/Report: PSA,Total (Free>4and<10) 1.08 0.00-4.00 ng/mL A Free PSA was not performed: The percentage of Free PSA can be used to enhance the differentiation of prostate cancer from benign prostatic disease in subjects whose PSA levels are between 4.0 and 10.0 ng/mL. For subjects whose PSA levels are below 4.0 or above 10.0 ng/mL, the risk of prostate cancer is determined on the basis of the PSA alone. Therefore the % Free PSA is recommended only for those subjects whose PSA levels are between 4.0 and 10.0 ng/mL. PSA methodology: Rider Alinity i Chemiluminescent Microparticle Immunoassay (CMIA) UA ClnCatch+Micro w/rflx Cul t Reviewed date:02/28/2024 02:55:19 PM Interpretation: Performing Lab:[facility], [address] [place] [phone] Notes/Report: [id number] Urine, Clean Catch Color Urine Yellow Appearance Urine Clear PH 7.5 5.0-9.0 Glucose Urine UA Negative Negative mg/dL Urine Blood Negative Negative Specific [place] - Urine 1.015 1.005-1.025 Urine Protein Negative Neg-Trace mg/dL Urine Ketones Negative Negative mg/dL Nitrite Urine Negative Negative Leukocyte Esterase Urine Trace Negative RBC Urine 0-2 0-2 /HPF WBC Urine 0-5 0-5 /HPF Squamous Epithelial Cell Urine 0-2 0-2 /HPF Bacteria Urine None Seen None Seen Hyaline Casts Urine 0-2 0-2 /LPF Occult Blood, Stool, Guaiac Reviewed date:03/13/2024 02:27:40 PM Interpretation:Negative Performing Lab: Notes/Report: Negative Occult Blood, Stool, Guaiac Neg Pathology Reviewed date:05/02/2024 04:33:20 PM Interpretation: Performing Lab:[facility], [address] [place] [phone] Notes/Report: Name: Andrea Boswell Age/Sex: 63/M : 1960 Unit#: [id number] Attend Dr: Singh Samuels MD Re04/27/24 Status: [facility] Location: [facility] Disch: SPEC : [id number] RECD: 04/27/24-1040 STATUS: CAROLYNE LANCASTER NUM: [id number] RONEN: 04/27/24-[address]: Singh Samuels MD ENTERED: 04/27/24-1114 SP TYPE: Surgical OTHR DR: Aamdor Menon MD ORDERED: HE Stain/6, Gross Micro L4/2 Diagnosis A. Colon, right, polypectomy: Colonic mucosa with prominent lymphoid aggregate. B. Colon, 60 cm, polypectomy: Tubular adenoma; negative for high-grade dysplasia or carcinoma. Clinical History Pre-Op Dx: Screening Post-Op Dx: Colon polyps Microscopic Description A, B. Microscopic sections reviewed. Material Received A. Right colon polyp B. Polyp at 60 cm Gross Description Received in 2 parts. A. Received in formalin labeled ?right colon polyp? are 2 fragments of translucent salmon- white soft tissue measuring 0.2 and 0.2 cm in greatest dimension which are entirely submitted for microscopic examination, 2 pieces in cassette A. B. Received in formalin labeled ?polyp at 60 cm? is a fragment of salmon-white soft tissue measuring 0.3 cm in greatest dimension which is entirely submitted for microscopic examination, 1 piece in cassette B. [facility] Copies To: Amador Menon MD [facility] [address] [place] [address] [place] [address] CONTINUED ON NEXT PAGE Name: Andrea Boswell Age/Sex: 63/M : 1960 Unit#: [id number] Attend Dr: Singh Samuels MD Re04/27/24 Status: [facility] Location: [facility] Disch: SPEC : [id number] RECD: 04/27/24-0 STATUS: CAROLYNE LANACSTER NUM: [id number] RNOEN: 04/27/24-[address]: Singh Samuels MD ENTERED: 04/27/24-1114 SP TYPE: Surgical OTHR DR: Amador Menno MD ORDERED: JOSE Stain/6, Thompson Encinas L4/2 Copies To: (Continued) Singh Samuels MD [address] [place] [address] Signed (signature on file) William Celeste MD 05/02/24 1532 END OF REPORT Reason For Referral Reason rectal bleeding Diagnosis 1 Rectal bleeding (K62 .5) Referral Organization Amador Menon MD Referring Provider First Name Amador Referring Provider Last [facility] Referred Provider Rodriguez Dupont Referred Provider Specialty Surgery General Notes Kristan Roberson 01:23:01 PM EST > patient is aware of appt Referral Priority Routine Referral Appointment Date 10/28/2023 Reason colonoscopy Diagnosis 1 Colon cancer screeni valeriy (Z12.11) Referral Organization Amador Menon MD Referring Provider First Name Amador Referring Provider Last [facility] Sinan Referring Provider edicine Referred Provider Singh Samuels Referred Provider Specialty Gastroentero logy General Notes Kristan Roberson 08:27:45 AM EST > info faxed , Kristan Roberson 11/11/2023 11:02:01 AM EDT > referral info mailed to patient , Jane Gomez 03/29/2024 08:45:48 AM EDT > OFFICE NOTED RECD Referral Priority Routine Referral Appointment Date 03/07/[address] ease eval and treat Diagnosis 1 Non-recurrent unilat eral inguinal hernia without obstruction or gangrene (K40.90) Referral Organization Amador Menon MD Referring Provider First Name Amador Referring Provider Last [facility] Sinan Referring Provider edicine Referred Provider Rodriguez Dupont Referred Provider Specialty Surgery General Notes Kristan Roberson 0 09/18/2024 09:29:17 AM >patient is aware of appt Referral Priority Routine Referral Appointment Date 09/19/2024 Medications Medication SIG (Take, Route, Fr equency, Duration) Notes Start Date End Date Status Ketoconazole 2 % 1 application Supply Chain Systems Manager ally Once a day for 30 days Active Immunizations Vaccine Route Administration Date Status Comme nts SARS-COV-2 Pfizer Unknown 11/25/2020 Administered SARS-COV-2 Pfizer Unknown 12/16/2020 Administered SARS-COV-2 Pfizer Unknown 07/18/2021 Administered TDaP Unknown 10/01/2022 Administered Hepatitis B Unknown 10/01/2022 Administered Hepatitis A (adult) Unknown 10/08/2022 Administered [facility] Shingrix Unknown 10/08/2022 Administered [facility] MMR Unknown 10/08/2022 Administered [facility] Social History Tobacco Use: Social History Observation [...] Never (0 point) Points 1 Interpretation Negative Problems Problem Type SNOMED Code ICD Code Onset Dates Problem Status W/U Status Risk Notes Problem History of splenectomy (514345514) History of splenectomy (Z90.81) Active confirmed Problem History of right hip replacement (136347937775629 8) History of right hip replacement (Z96.641) Active confirmed Problem History of left hip replacement (438302647978336 7) History of left hip replacement (Z96.642) Active confirmed Vital Signs Blood pressure diastolic 90 mm Hg 09/18/2024 elvin ght is up 7 pounds since 03-13-24 Height 63 in 09/18/2024 weight is up 7 pounds since 03-13-24 Blood pressure systolic 132 mm Hg 09/18/2024 weig ht is up 7 pounds since 03-13-24 Weight 168 lbs 09/18/2024 weight is up 7 pounds since 03-13-24 BMI 29.76 kg/m2 09/18/2024 weight is up 7 pounds since 03-13-24 Procedures Procedure Date Ordered Date Performed Result Body Sit e Colonoscopy, Screening 04/27/2024 04/27/2024 pending biops y path Encounters Encounter Location Date Provider Diagnosis Amador Menon MD [address] [place] [phone] 03/13/2024 Amador Menon Adult general medical exam Z00.00 ; Colon cancer screening Z12.11 and Encounter for screening for depression Z13.31 Amador Menon MD [address] [place] [id number] 02/28/2024 Amador Menon Blood tests for routine general physical examination Z00.00 Amador Menon [address] [place] [id number] 10/28/2023 Amador Menon Rectal bleeding K62.5 Amador Menon MD [address] [place] [id number] 09/18/2024 Amador Menon Non-recurrent unilateral inguinal hernia without obstruction or gangrene K40.90 Assessments Encounter Date Diagnosis (ICD Code) Assessment Notes Treatment Notes Treatment Clinical Notes Section Notes 03/13/2024 Adult general medical exam (ICD-10 - Z00.00) 03/13/2024 Colon cancer screening (ICD-10 - Z12.11) guaiac negative 02/28/2024 Blood tests for routine general physical examination (ICD-10 - Z00.00) 10/28/2023 Rectal bleeding (ICD-10 - K62.5) referral to dr walton. seems like it most likely is a fissure. seems unlikely that it is up inside since it comes out without diarrhea/ make appt with dr sanchez for colonoscopy/ being seen today 09/18/2024 Non-recurrent unilateral inguinal hernia without obstruction or gangrene (ICD-10 - K40.90) is going to try to see dr rubi who did his previous surgery. if she is availabale will do a referral there 03/13/2024 Encounter for screening for depression (ICD-10 - Z13.31) negative screen Plan Of Treatment Next Appt Details Provider Name:Amador zuniga, 03/08/2025 07:45:00 AM, [address] [place] [address], [address], [phone], Provider Name:Amador zuniga, 03/15/2025 01:00:00 PM, [address], [address], [phone], Insurance Providers Payer Name Payer Address Payer Phone Subscriber Number Group Number Insured Name Patient Relationship to Insured Coverage Start Date Coverage End Date [employer] [address] [place], [place] [id number] Andrea Boswell Self - patient is the insured Medical (General) History Medical History History ICD Code colonoscopy 3 years ago. domonique vega he is due 2019 colonoscopy scheduled mar 2024. 04/27/24 colonoscopy pending path
--- OUTSIDE RECORDS SUMMARY | 2024-10-11 06:02 | XMS_ITS ---
Author Organization Amador Menon MD Address [address] [place] [phone] Care Team Providers Care Warehouse Foreman Name Role Phone Amador Menon Primary Care Provider Results Component Value Reference Range Notes Complete Blood Count Auto Di ff Reviewed date:02/28/2024 04:20:23 PM Interpretation: Performing Lab:[facility], [address] [place] [phone] Notes/Report: White Blood Count 8.4 4.8-10.8 X10*3/uL [...] NRBC Abs Auto 0.000 0.0-0.012 X10*3/uL Comprehensive [place]. Panel Fa Reviewed date:02/28/2024 12:46:16 PM Interpretation: Performing Lab:[facility], [address] [place] [phone] Notes/Report: Sodium 141 135-145 mmol/L Potassium 4.0 3.3-5.1 mmol/L Chloride 105 96-108 mmol/L Carbon Dioxide 29 22-29 mmol/L Anion Gap 11 12-20 Blood Urea Nitrogen 18 9-16 mg/dL Creatinine 0.81 0.5-1.4 mg/dL Estimated Glomerular Filt Rate > 60 NOTE: For -[place]rian individuals, multiply the result by 1.210. Chronic [...] Panel Reviewed date:02/28/2024 12:41:23 PM Interpretation: Performing Lab:[facility], [address] [place] [phone] Notes/Report: Triglycerides 103 <150 mg/dL Desirable Triglyceride: [...] (Free>4and<10) Reviewed date:02/28/2024 02:53:01 PM Interpretation: Performing Lab:[address] [phone] Notes/Report: PSA,Total (Free>4and<10) 1.08 0.00-4.00 ng/mL A [...] t Reviewed date:02/28/2024 02:55:19 PM Interpretation: Performing Lab:[facility], [address] [place] [phone] Notes/Report: [id number] 0745 Urine, Clean Catch Color Urine Yellow Appearance Urine Clear PH 7.5 5.0-9.0 Glucose Urine UA Negative Negative mg/dL Urine Blood Negative Negative Specific [place] - Urine 1.015 1.005-1.025 Urine Protein Negative Neg-Trace mg/dL Urine Ketones Negative Negative mg/dL Nitrite Urine Negative Negative Leukocyte Esterase Urine Trace Negative RBC Urine 0-2 0-2 /HPF WBC Urine 0-5 0-5 /HPF Squamous Epithelial Cell Urine 0-2 0-2 /HPF Bacteria Urine None Seen None Seen Hyaline Casts Urine 0-2 0-2 /LPF REASON FOR VISIT yearly labs Encounters Encounter Location Date Provider Diagnosis Amador Menon MD [address] [place], [place] [phone] 02/28/2024 Amador Menon Blood tests for routine general physical examination Z00.00 Assessments Encounter Date Diagnosis (ICD Code) Assessment Notes Treatment Notes Treatment Clinical Notes Section Notes 02/28/2024 Blood tests for routine general physical examination (ICD-10 - Z00.00) Plan Of Treatment Next Appt Details Provider Name:Amador zuniga, 03/08/2025 07:45:00 AM, [address], Suite [facility], [place], [phone], Provider Name:Amador zuniga, 03/15/2025 01:00:00 PM, [address] [place] [address], [address], [place], [phone], Progress Notes * Andrea BOSWELLDOB:[birth year] (64 yo M)Acc No.[id number]:02/28/2024 Progress Note Patient:?Andrea BOSWELL Provider:?Amador Menon MD :1960???Age:63 Y???Sex:Male Isaac e:02/28/2024 Address:[address] [place] [address] [id number] Subjective: * Chief Complaints: * ???1. Yearly labs. * Medical History:? Objective: * Vitals:? Assessment: * Assessment: 1.?Blood tests for routine g eneral physical examination - Z00.00 (Primary)??? Plan: * Treatment: * Procedure Codes:?08358 VENIP UNCT, ROUTINE* * * The named appointment provid er may or may not be the originator of this progress note, and it is not deemed complete until electronically signed by the appointment provider. Sign off status: Pending * Provider:?Amador Menon MD Date:?0 02/28/2024 Generated for Luisi valeriy/Olvni/eTransmitting on:?10/11/2024 06:02 AM EST
--- OUTSIDE RECORDS SUMMARY | 2024-10-11 06:02 | XMS_ITS ---
Author Organization Amador Menon MD Address [address] [place] [phone] Care Team Providers Care Director Institution Name Role Phone Amador Menon Primary Care [...] Date Status Ketoconazole 2 % 1 application Button Station Worker ally Once a day for 30 days [...] kg/m2 03/13/2024 weight is down 8 pounds [facility] e 24 Encounters Encounter Location Date Provider Diagnosis Amador Menon MD [address] [place] [address] [address] [place], [place] [phone] 03/13/2024 Amador Menon Adult general medical exam [...] Date Notes Ketoconazole 2 % 1 application Button Station Worker ally Once a day for 30 days Treatment Notes Assessment Notes Colon cancer screening guaiac negative Encounter for screening for depression n egative screen Next Appt Details Follow Up: 1 Year, Reason: Provider Name:Amador zuniga, 03/08/2025 07:45:00 AM, [address] [place] [address], Suite [facility], [place], [place], [phone], Provider Name:Amador zuniga, 03/15/2025 01:00:00 PM, [address] [place] [address], [address], [place], [place], [phone], Progress Notes * Andrea BOSWELLDOB:[birth year] (63 yo M)Acc No.[id number]:03/13/2024 Progress Notes Patient:?Andrea Boswell Provider:?Amador Menon MD :1960???Age:63 Y???Sex:Male Isaac e:03/13/2024 Address:[address] [place] [address] [id number] Subjective: * Chief Complaints: * ???Annual visitC/o left ear ache x 1 day * HPI: ???Depression Screening:?PHQ-9?Little interest or pleasure in doing things?Not at all,?Feeling down, depressed, or hopeless?Not at all,?Trouble falling or staying asleep, or sleeping too much?Not at all,?Feeling tired or having little energy?Not at all,?Poor appetite or overeating?Not at all,?Feeling bad about yourself or that you are a failure, or have let yourself or your family down?Not at all,?Trouble concentrating on things, such as reading the newspaper or watching television?Not at all,?Moving or speaking so slowly that other people could have noticed; or the opposite, being so fidgety or restless that you have been moving around a lot more than usual?Not at all,?Thoughts that you would be better off or of hurting yourself in some way?Not at all,?Total Score?0.?Interpretation and Intervention?Depression Screening Findings?Negative,?Follow-Up for Depression?: review of PHQ-9 found negative result, no follow-up needed.?Communication Needs:?Communication Needs?Does the patient have a hearing impairment?No,?Does the patient have a vision impairment??Yes,?If yes, what is the vision impairment??Glasses,?Does the patient have a cognition impairment??No.?Fall Risk:?History?Have you had any falls with injury in the past year??No,?Have you had two or more falls in the past year??No.?SDOH Questions:?SDOH Questions?In the past year have you been worried about losing housing??No,?In the past year have you or any family members you live with been unable to get any of the following when it was really needed? Check all that apply:?None.?Symptom(s):? patient is a 63 yo male here for annual follow up. has been doing well, complainingof left earache for one day. * ROS:?General/Constitutional:?Change in appetite?denies.?Chills?denies.?Fever?denies.?Ophthalmologic:?Blurred vision?denies.?Discharge?denies.?Pain?denies.?ENT:?Decreased hearing?denies.?Sore throat?denies.?Swollen glands?denies.?Endocrine:?Cold intolerance?denies.?Excessive thirst?denies.?Heat intolerance?denies.?Weight loss?denies.?Respiratory:?Cough?denies.?Shortness of breath at rest?denies.?Shortness of breath with exertion?denies.?Wheezing?denies.?Cardiovascular:?Chest pain at rest?denies.?Chest pain with exertion?denies.?Irregular heartbeat?denies.?Shortness of breath?denies.?Gastrointestinal:?Abdominal pain?denies.?Change in bowel habits?denies.?Diarrhea?denies.?Nausea?denies.?Rectal bleeding?denies.?Vomiting?denies .?Genitourinary:?Blood in urine?denies.?Difficulty urinating?denies.?Frequent urination?denies.?Musculoskeletal:?Painful joints?denies.?Weakness?denies.?Skin:?Dry skin?denies.?Itching?denies.?Denies?Mole(s),? changes in moles, new moles or any lesions of concern.?Denies?Photosensitivity.?Rash?denies.?Neurologic:?Dizziness?denies.?Fainting?denies.?Headache?denies.? * Medical History:? * Surgical History:? * Hospitalization/Major Diagno stic Procedure:? * Family History:?Father: panda jasmine 85 yrs, diagnosed with Hypertension.?Mother: alive 80 yrs, diagnosed with Hypertension, Asthma.?2 brother(s) . 1 son(s) , 1 daughter(s) . .? Denies mental health/substance abuse family history, Denies mental health/substance abuse family history. * Social History:?Tobacco Use:?Tobacco Use/Smoking?Patient is a?nonsmoker,?Additional Findings: Tobacco Non-User?Current non-smoker, currently using no form of tobacco.?Drugs/Alcohol:?Alcohol Screen?Did you have a drink containing alcohol in the past year??Yes,?How often did you have a drink containing alcohol in the past year??Monthly or less (1 point),?How many drinks did you have on a typical day when you were drinking in the past year??1 or 2 drinks (0 point),?How often did you have 6 or more drinks on one occasion in the past year??Never (0 point),?Points?1,?Interpretation?Negative.?Miscellaneous:?Caffeine: yes, frequency:, 2-3 cups per day. Children: yes. 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 Home smoke detector use: yes. Housing: owning. Living with: spouse. Marital status: . no Travel outside of the [place]. * Medications:?TakingKetoconaz ole 2 % Cream 1 application Externally Once a dayMedication List reviewed and reconciled with the patientTaking Ketoconazole 2 % Cream 1 application Externally Once a dayMedication List reviewed and reconciled with the patient * Allergies:?N.K.D.A.yes[Dilshad cervantes Verified] Objective: * Vitals:?Ht: 63, Wt:161, BMI: 28.52, BP:114/70 weight is down 8 pounds since 10-28-23. * ???Past Orders: ???Lab:PSA,Total (Free>4and< 10) (Order Date - 02/28/2024) (Collection Date - 02/28/2024) ? Value Reference Range ?PSA,Total (Free>4and<10) 1.08 0.00-4.00 - ng/mL ???Lab:UA ClnCatch+Micro w/r flx Cult (Order Date - 02/28/2024) (Collection Date - 02/28/2024) ? Value Reference Range ?Color Urine Yellow - ?Appearance Urine Clear - ?PH 7.5 5.0-9.0 - ?Glucose Urine UA Negative Neg ative - mg/dL ?Urine Blood Negative Negative - ?Specific [place] - Urine 1.015 1.005-1.025 - ?Urine Protein Negative Neg-Tr heather - mg/dL ?Urine Ketones Negative Negati ve - mg/dL ?Nitrite Urine Negative Negati ve - ?Leukocyte Esterase Urine Trace A Negative - ?RBC Urine 0-2 0-2 - /HPF ?WBC Urine 0-5 0-5 - /HPF ?Squamous Epithelial Cell Urine 0-2 0-2 - /HPF ?Bacteria Urine None Seen None Seen - ?Hyaline Casts Urine 0-2 0-2 - /LPF ???Lab:Complete Blood Count Auto Diff (Order Date - 02/28/2024) (Collection Date - 02/28/2024) ? Value Reference Range ?White Blood Count 8.4 4. 8-10.8 - X10*3/uL ?Red Blood Count 4.70 4.60 -5.80 - X10*6/uL ?Hemoglobin 14.0 14.0-18.0 - g/dl ?Hematocrit 42.1 42.0-52.0 - % ?Mean Corpuscular Volume 89.6 80.0-98.0 - fL ?Mean Corpuscular Hemoglobin 29.8 27.0-33.0 - pg ?Mean Corpuscular HGB Conc 33.3 31.0-36.0 - g/dl ?Red Cell Distribution Width 14.6 11.0-16.0 - % ?Platelet Count 250 160-4 00 - X10*3/uL ?Mean Platelet Volume 12.5 H 9.4-12.4 - fL ?Neutrophils Percent Auto 47.5 45-73 - % ?Imm Gran Pct Auto 0.1 0. 0-0.4 - % ?Lymphocytes Percent Auto 34.8 20-40 - % ?Monocytes Percent Auto 14.1 H 2-11 - % ?Eosinophils Percent Auto 2.7 0-4 - % ?Basophils Percent Auto 0.8 0-2 - % ?NRBC Pct Auto 0.0 0.0-0. 2 - /100WBC ?Neutrophils Absolute Auto 4.0 2.0-8.3 - x10*3/uL ?Imm Gran Abs Auto 0.01 0. 00-0.03 - X10*3/uL ?Lymphocytes Absolute Auto 2.9 1.2-4.9 - X10*3/uL ?Monocytes Absolute Auto 1.2 0.1-1.2 - X10*3/uL ?Eosinophils Absolute Auto 0.2 0.0-0.4 - X10*3/uL ?Basophils Absolute Auto 0.1 0.0-0.2 - X10*3/uL ?NRBC Abs Auto 0.000 0.0-0. 012 - X10*3/uL ???Lab:Comprehensive [place]. P olvin Fast (Order Date - 02/28/2024) (Collection Date - 02/28/2024) ? Value Reference Range ?Sodium 141 135-145 - mmo l/L ?Bilirubin Total 0.7 0.0- 1.0 - mg/dL ?Aspartate Amino Transferase 23 5-37 - U/L ?Alanine Aminotransferase 9 0-40 - U/L ?Total Protein 7.4 6.5-8. 0 - g/dL ?Albumin Level 4.0 3.5-5. 0 - g/dL ?Alkaline Phosphatase 54 39-117 - U/L ?Potassium 4.0 3.3-5.1 - mmol/L ?Chloride 105 96-108 - mm ol/L ?Carbon Dioxide 29 22-29 - mmol/L ?Anion Gap 11 L 12-20 - ?Blood Urea Nitrogen 18 H 9-16 - mg/dL ?Creatinine 0.81 0.5-1.4 - mg/dL ?Estimated Glomerular Filt Rate > 60 - ?Glucose Fasting 92 60-9 9 - mg/dL ?Calcium 9.7 8.4-10.2 - m g/dL ???Lab:Lipid Panel (Order Da te - 02/28/2024) (Collection Date - 02/28/2024) ? Value Reference Range ?Triglycerides 103 <150 - mg/dL ?Cholesterol 194 <200 - m g/dL ?LDL Cholesterol Calculated 108 H <100 - mg/dL ?HDL Cholesterol 66 >40 - mg/dL * Examination: ???General Examination: ?GENERAL APPEARANCE:?well developed, well nourished, in no acute distress.?HEAD:?normocephalic, atraumatic.?EYES:?pupils equal, round, reactive to light and accommodation, sclera non-icteric.?EARS:?normal.?ORAL CAVITY:?mucosa moist.?THROAT:?clear.?NECK/THYROID:?neck supple, full range of motion, no cervical lymphadenopathy, no bruits.?SKIN:?warm and dry, no suspicious lesions.?HEART:?regular rate and rhythm, S1, S2 normal, no murmurs.?LUNGS:?clear to auscultation bilaterally.?ABDOMEN:?soft, nontender, nondistended, bowel sounds present, normal, no organomegaly , no masses palpable.?RECTAL EXAM:?normal tone, no external hemorrhoids, no masses palpable, prostate normal, stool guaiac negative.?MALE GENITOURINARY:?circumcised, no testicular mass, testes descended bilaterally.?EXTREMITIES:?no clubbing, cyanosis, or edema.?NEUROLOGIC:?nonfocal, motor strength normal upper and lower extremities, sensory exam intact.? Assessment: * Assessment: 1.?Adult general medical exa m - Z00.00 (Primary)?2.?Colon cancer screening - Z12.11?3.?Encounter for screening for depression - Z13.31? Plan: * Treatment: 2.?Colon cancer screening?LAB: Occult Blood, Stool, Guaiac?Negative ? Value Reference Range ?Occult Blood, Stool, Guaiac Neg Notes: guaiac negative.??3.?Encounter for screening for depression? Notes: negative screen.?? * Procedure Codes:?68632 TEST FOR BLOOD, FECES * Preventive Medicine:? ??Counseling:?Care goal follow-up plan:?Counseling for abnormal BMI provided?Yes,?Above Normal BMI Follow-up?Giving encouragement to exercise.? * Follow Up:?1 Year * * Sign off status: Completed true * Provider:?Amador Menon MD Date:?0 03/13/2024 Generated for Linnea crooks/Olvin/Zay on:?10/11/2024 06:01 AM EST History and Physical Notes * HPI (History [...] patient have a vision impairmen t?: Yes ?If yes, what is the vision impairment?: Glasses Does the patient have a cognition impair ment?: No Examination Category Sub-Category Detail Notes Category Not es General Examination GENERAL APPEARANCE: well dev eloped, well nourished, in no acute distress HEAD: normocephalic, atrau matic EYES: pupils equal, round, reactive to light and accommodation, sclera non- icteric EARS: normal THROAT: clear NECK/THYROID: neck supple, [...]
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
--- OUTSIDE RECORDS SUMMARY | 2024-10-11 06:03 | XMS_ITS ---
Author Organization [facility] Address [address] [place] [address] Care Team Providers Care Fuel Efficient Aircraft Designer Name Role Phone Amador Menon MD Primary Care Provider Singh Saldana Jr ALLERGIES No Known Allergies REASON FOR VISIT [...] Problem Colon cancer screening (Z12.11) Active confirmed 446241598 Problem Rectal bleeding (K62.5) Active confirmed 27842894 Problem Hemorrhoids, unspecified hemorrhoid type (K64.9) Active confirmed 45481680 VITAL SIGNS BMI 27.99 kg/m2 03/07/2024 Blood pressure systolic 000 mm Hg 03/07/20 24 Blood pressure diastolic 00 mm Hg 024 Height 5 ft 3 in in 03/07/2024 Temperature 97.3 degrees Fahrenheit 07/10/20 24 Weight 158 lbs 03/07/2024 Encounters Encounter Location Date Provider Diagnosis [facility] [address] [place] [address] 03/07/2024 Singh Samuels Jr Colon cancer screening [...] General Examination GENERAL APPEARANCE: in no ac chitina distress HEAD: normocephalic EYES: sclera non-icteric NECK/THYROID: no lymphadenopathy HEART: S1, S2 normal, no mu rmurs CHEST: normal shape and exp ansion LUNGS: clear to auscultatio n bilaterally ABDOMEN: soft, nontender, non distended, bowel sounds present, no organomegaly SKIN: anicteric EXTREMITIES: no clubbing, cyanosi s, or edema PSYCH: cognitive function i ntact ORAL CAVITY: mucosa moist
--- OUTSIDE RECORDS SUMMARY | 2024-10-11 06:03 | XMS_ITS ---
Author Organization Amador Menon MD Address [address] [place] [phone] Care Team Providers Care Prep Cook Name Role Phone Amador Menon Primary Care Provider Allergies No Known Allergies Reason For Referral Reason inguinal hernia pl ease eval and treat Diagnosis 1 Non-recurrent unilat eral inguinal hernia without obstruction or gangrene (K40.90) Referral Organization Amador Menon MD Referring Provider First Name Amador Referring Provider Last Name Sinan Referring Provider Speciality Internal M edicine Referred Provider Rodriguez Dupont Referred Provider Specialty Surgery General Notes Kristan Roberson 0 09/18/2024 09:29:17 AM >patient is aware of appt Referral Priority Routine Referral Appointment Date 09/19/2024 REASON FOR VISIT ? hernia r inguinal x 1 month Medications Medication SIG (Take, Route, Fr equency, Duration) Notes Start Date End Date Status Ketoconazole 2 % 1 application Wire Twister ally Once a day for 30 days Active Vital Signs Blood pressure systolic 132 mm Hg 09/18/19 25 Blood pressure diastolic 90 mm Hg 025 Height 63 in 09/18/2024 Weight 168 lbs 09/18/2024 BMI 29.76 kg/m2 09/18/2024 weight is up 7 pounds since 03-13-24 Encounters Encounter Location Date Provider Diagnosis Amador Menon MD [address] [place] [phone] 09/18/2024 Amador Menon Non-recurrent unilateral inguinal hernia without obstruction or gangrene K40.90 Assessments Encounter Date Diagnosis (ICD Code) Assessment Notes Treatment Notes Treatment Clinical Notes Section Notes 09/18/2024 Non-recurrent unilateral inguinal hernia without obstruction or gangrene (ICD-10 - K40.90) is going to try to see dr rubi who did his previous surgery. if she is availabale will do a referral there Plan Of Treatment Treatment Notes Assessment Notes Non-recurrent unilateral ing uinal hernia without obstruction or gangrene is going to try to see dr rubi who di d his previous surgery. if she is availabale will do a referral there Referrals Referral Date Details 09/18/2024 09/18/2024, inguinal hernia please eval and treat, Rodriguez Blackwelljeffrey Next Appt Details Provider Name:Amador Andersen ier, 03/08/2025 07:45:00 AM, [address] [place] [address], [place] [address], [place], [phone], Provider Name:Amador Andersen ier, 03/15/2025 01:00:00 PM, [address] [place] [address], Suite [facility], [place], [phone], Progress Notes * Andrea BOSWELLDOB:[birth year] (64 yo M)Acc No.[id number]:09/18/2024 Progress Notes Patient:?Andrea BOSWELL Provider:?Amador Menon MD :1960???Age:64 Y???Sex:Male Isaac e:09/18/2024 Address:[address] [place], [place] [phone] Subjective: * Chief Complaints: * ? hernia r inguinal x 1 m onth * HPI: ???Symptom(s):? patient is a 64 yo male here with complaint, has bulge and every time he coughs and lifts, for the last month. * ROS:?General/Constitutional:?Denies?Chills.?Denies?Fatigue.?Denies?Fever.?Denies?Headache.?ENT:?Patient denies?decreased sense of smell , any loss of taste , sore throat.?Denies?Sore throat.?Respiratory:?Denies?Cough.?Denies?Shortness of breath at rest.?Denies?Shortness of breath with exertion.?Gastrointestinal:?Denies?Diarrhea.?Denies?Nausea.?Men Only:?Admits?Lump in groin,?right side? x 1 month.?Musculoskeletal:?Patient denies?muscle aches.?Peripheral Vascular:?Patient denies?red and blue toes.? * Medical History:? * Surgical History:? * Hospitalization/Major Diagno stic Procedure:? * Medications:?TakingKetoconaz ole 2 % Cream 1 application Externally Once a day Medication List reviewed and reconciled with the patientTaking Ketoconazole 2 % Cream 1 application Externally Once a day Medication List reviewed and reconciled with the patient * Allergies:?N.K.D.A.yes[Aller gies Verified] Objective: * Vitals:?Ht: 63, Wt:168, BMI: 29.76, BP:132/90, Repeat BP:120/90. weight is up 7 pounds since 03-13-24. * Examination: ???General Examination: ?GENERAL APPEARANCE:?alert, well hydrated, in no distress.?HEAD:?normocephalic.?ABDOMEN:?abnormal with rt reducible inguinal hernia.? Assessment: * Assessment: 1.?Non-recurrent unilateral inguinal hernia without obstruction or gangrene - K40.90 (Primary)??? Plan: * Treatment: * Procedure Codes:? * * Sign off status: Completed true * Provider:?Amador Menon MD Date:?0 09/18/2024 Generated for Linnea crooks/Olvin/eTransmitting on:?10/11/2024 06:02 AM EST History and Physical Notes * HPI (History of Present Illness) Category Sub-Category Detail Notes Category Not es Symptom(s) patient is a 64 yo male here with complaint, has bulge and every time he coughs and lifts, for the last month Examination Category Sub-Category Detail Notes Category Not es General Examination GENERAL APPEARANCE: alert, w ell hydrated, in no distress HEAD: normocephalic ABDOMEN: abnormal with rt red ucible inguinal hernia Consultation Request Notes Referral Date Referring Provider Referred Provider Not es 09/18/2024 Amador Menon John inguinal hernia please eval and treat
[2024-10-11 06:33] VITALS: BP 144/85; PULSE 66; RESP 16; TEMP 36.2; O2SAT 100
[2024-10-11] MEDS: Lactated Ringers 1,000 ML 100 ML IVCONT (06:36)
--- NOTE | 2024-10-11 07:13 | MHC.SHP ---
Pre-Procedural Eval Section A - 24 Hr Update-Section A only Date of Service: 10/11/24 The patient is an INPATIENT: No Changes since office visit: Yes Patient answered all questions; No Cold of Flu in the past 2 weeks, No New Medical Problems and No Changes in Medication The patient has been examined within 24 hours of the surgical procedure. The History & Physical has been completed within 30 days and I have reviewed it.: Yes Section B - Complete if H&P > 30 days Chief Complaint: Unilateral inguinal hernia, without obstruction or Allergies: Allergies Allergy/AdvReac Type Severity Reaction Status Date / Time hydromorphone [From Dilaudid] AdvReac Nausea Verified 09/19/24 09:10 Plan Diagnosis/Plan: Unchanged I have reviewed the history and physical and performed a pertinent physical examination on my patient. No changes have occurred unless specified. Time Spent With Patient Time: Total time managing care of this patient today ____ minutes.
--- NOTE | 2024-10-11 07:40 | P.OP_ITS ---
Operative Note Operative Note Date of Service: 10/11/24 Narrative: Preoperative diagnosis: Inguinal hernia reducible Postoperative diagnosis: Same Procedure: Repair of reducible right inguinal hernia with mesh Surgeon: Rodriguez Dupont MD Auxiliary Operator: Dory Gaston PA-C Anesthesia: General LMA Indications for procedure: 64-year-old male patient presenting with a painful lump in the right groin noted to have a reducible lump consistent with a right inguinal hernia. Operative findings: Indirect right inguinal hernia Specimen: Hernia sac right side Estimated blood loss: 2 mL Complications: None Procedure details: Patient was brought to the OR and placed in a supine position. After administering general anesthesia the patient's abdomen was prepped with ChloraPrep and draped in a sterile fashion. A surgical time-out was called the consent confirmed received preoperative antibiotics and Venodyne boots were in. Local anesthesia consisting of 0.5% Sensorcaine was infiltrated over the right inguinal ligament. An incision was then made over the right i nguinal ligament, carried down past Jonh's fascia and up to the external oblique aponeurosis. Additional local was placed below the external oblique aponeurosis. An incision was made with a scalpel in the direction of the fibers of the aponeurosis. This was then widened with the Metzenbaum scissors. The spermatic cord was then dissected free from the surrounding inguinal canal and retracted using a Kunkle drain. The floor of the inguinal canal was found to be intact without a direct hernia. Fibers of the cremaster muscle were then using electrocautery and a indirect sac identified. This was grasped with a hemostats and dissected down to the internal ring. The sac was opened and its contents reduced. The sac was then ligated at its base with a 0 Polysorb suture and the sac excised. This was sent to pathology as a specimen. Attention was then directed to the floor of the inguinal canal. The internal oblique aponeurosis was grasped with Allis clamps and incised in the direction of the fibers using electrocautery. Similar fashion in the transverse abdominis fascia was incised and the preperitoneal space entered. This was then widened with an open Ray-Jace sponge. A large extended PHS mesh was obtained. The circular underlay was deployed with preperitoneal space in the overlay secured to the pubic tubercle, conjoined tendon, shelving edge of the inguinal ligament using 0 Polysorb suture. A slit was made in the mesh in the mesh wrapped around the spermatic cord at the internal ring. This was made tight enough to allow the passage of the index finger. This was secured to the shelving edge of the inguinal ligament. Wounds were then irrigated with saline solution and suctioned dry. External oblique aponeurosis was reapproximated using a running 2-0 Polysorb suture. Approximately 8 mL of Zenrelef was then instilled below the external oblique aponeurosis for postoperative pain relief. Jonh's fascia and dermis were then reapproximated using interrupted 3-0 Polysorb sutures. Skin was closed using a running subcuticular 4-0 Polysorb suture. Sterile dressings consisting of Steri-Strips, 4 x 4 gauze and Tegaderm were then applied. The patient tolerated the procedure well. Sponge, instrument, and needle counts reported as correct. Patient was transferred to PACU in stable condition.
[2024-10-11 08:36] VITALS: BP 133/85; PULSE 73; RESP 16; TEMP 36.3; O2SAT 99
[2024-10-11 08:41] VITALS: BP 137/81; PULSE 69; RESP 17; O2SAT 100
[2024-10-11 08:46] VITALS: BP 134/72; PULSE 63; RESP 17; O2SAT 97
[2024-10-11 08:51] VITALS: BP 131/79; PULSE 65; RESP 17; O2SAT 99
[2024-10-11 09:06] VITALS: BP 142/81; PULSE 67; RESP 18; TEMP 36.2; O2SAT 99
== END 2024-10-11 09:31 | disposition home or self-care (01) ==
PROVIDERS: PCP Internal Medicine; Visit Provider Surgery
PROC: (CPT 49505; principal; 2024-10-11 07:30)
DX: K40.90 Unilateral inguinal hernia, without obstruction or gangrene, not specified as recurrent (principal); Z90.49 Acquired absence of other specified parts of digestive tract; Z90.81 Acquired absence of spleen; Z79.899 Other long term (current) drug therapy; Z88.8 Allergy status to other drugs, medicaments and biological substances; Z98.890 Other specified postprocedural states
CPT/HCPCS: 49505; 88302; C1781; C9088; J0131; J0690; J1100; J2003; J2405; J2704; J2795; J3010

== ENCOUNTER → 2024-10-11 05:59 | Outpatient (BNV) | payer BC, SELFPAY | PROVIDERS: PCP Internal Medicine; Visit Provider Surgery | DX: K40.90 Unilateral inguinal hernia, without obstruction or gangrene, not specified as recurrent (principal) | CPT/HCPCS: 49505 ==

== ENCOUNTER 2024-10-23 09:05 | Outpatient (AMB) | payer BC, SELFPAY ==
--- NOTE | 2024-10-23 09:06 | MHC.OFFVIS ---
Vital Signs 10/23/24 09:18 Height 5 ft 3 in Weight 168 lb BMI 29.8 BP 168/95 H Blood Pressure Location Lt brachial Position Sitting Pulse 64 Intake Visit Reasons: S/P RIH w/mesh Intake Note: Patient is seen in office for post op assessment post right inguinal hernia repair. Pt c/o: admits to sore and tender, specially in the right testicle surgery:10/11/24 Curing Bin Operator Required: No Accompanied by: Self / Same As Patient Allergies hydromorphone [From Dilaudid] Adverse Reaction (Verified 10/23/24 09:18) Nausea HPI Comments Details: 64-year-old male patient returning 1 week following repair of a right inguinal hernia. He had some swelling and discomfort in the testicle which is now improved. He feels the Steri-Strips may be pulling on his skin causing some irritation. He is eating well and denies any nausea, vomiting, or constipation. He reports that his father last evening. He was living in a nursing facility. His mother last month. [facility] Medical History No pertinent past medical history Surgical History History of right inguinal hernia repair (10/11/24) Hx of colonoscopy (03/2024) History of hemorrhoidectomy (10/2023) S/P colon resection Hx of hernia repair History of bilateral total hip arthroplasty Hx of splenectomy Social History Household Members: Spouse Alcohol intake: current Alcohol intake frequency: holidays/special occasions only Patient Tobacco Use Status: Never used Tobacco Physical Exam Vital Signs: Last Vital Signs Pulse 64 10/23/24 09:18 BP 168/95 H 10/23/24 09:18 BMI result Body Mass Index 29.8 Const General: no acute distress Nutritional Appearance: well nourished Orientation/consciousness: patient oriented x3 Resp Effort & Inspection: normal respiratory effort GI Other: Right inguinal incision is clean, dry, and intact without redness or discharge. No hernia Valsalva maneuvers. No hematoma or seroma. Neuro General: patient oriented x3 Assessment & Plan Assessment & Plan (1) Reducible right inguinal hernia: Code(s): K40.90 - Unilateral inguinal hernia, without obstruction or gangrene, not specified as recurrent Category: Medical Plan 64-year-old male patient status post repair of right inguinal hernia 1 week ago. His wounds are clean, dry, and intact without redness or discharge. There is no evidence of wound infection or hernia recurrence. He should continue to avoid lifting greater than 10 lb for the next 4 weeks and return at that time for wound check. He is welcome to call sooner for any new concerns. Coding Level of Care Code Global (42588) Diagnoses Reducible right inguinal hernia K40.90
[2024-10-23 09:18] VITALS: BP 168/95; PULSE 64; BMI 29.8
--- OUTSIDE RECORDS SUMMARY | 2024-10-23 09:54 | XMS_ITS | Patient Health Record ---
Author Organization Amador Menon MD Address [address] [place] [id number] Care Team Providers Care Mounter Name Role Phone Amador Menon Primary Care Provider Allergies No Known Allergies Results Component Value Reference Range Notes Pathology Reviewed date:11/24/2023 12:43:58 PM Interpretation: Performing Lab:[facility], [address] [place] [phone] Notes/Report: --- Name: Danelle Boswell renzo Anderson Age/Sex: 63/M : 1960 Unit#: [id number] Attend Dr: Rodriguez Dupont MD Re11/23/23 Status : [facility] Location: [facility] Disch: --- SPEC : [id number] RECD : 11/23/23 STATUS: CAROLYNE LANCASTER NUM: [id number] RONEN: 11/23/23 [facility] DR: Rodriguez Dupont MD ENTERED: 11/23/23- 30 SP TYPE: Surgical OTHR DR: Amador Menon MD ORDERED: Gross Micro L3 Diagnosis Hemorrhoid, hemorrhoidectomy: Benign squamous and rectal mucosa with underlying ectatic and irregular vessel s consistent with hemorrhoids. Clinical History Second degree hemorrhoids Microscopic Description Microscopic sections reviewed. Material Received Hemorrhoid Gross Description Received in formalin labeled ?hemorrhoid? is a 2.3 x 0.5-1.0 x 0.45 cm edematous and erythematous, golden-t an and salmon-pink portion of rectoanal mucosa and submucosa which is focally eroded and velvety. The margins are inked and the specimen is sectioned to reveal edematous, salmon-pink cut surfaces, entirely submitted in a cassette labeled A. CEDS Copies To: Amador Menon MD [address] [place] [address] Rodriguez Dupont MD [address] [place] [address] [place] [address] --- Signed (signature on file) Leyla Mora 11/24/23 1233 --- END OF REPORT Complete Blood Count Auto Di ff Reviewed date:02/28/2024 04:20:23 PM Interpretation: Performing Lab:[facility], [address] [place] [phone] Notes/Report: White Blood Count 8.4 4.8-10.8 X10*3/uL [...] NRBC Abs Auto 0.000 0.0-0.012 X10*3/uL Comprehensive [place]. Panel Fa st Reviewed date:02/28/2024 12:46:16 PM Interpretation: Performing Lab:[facility], [address] [place] [phone] Notes/Report: Sodium 141 135-145 mmol/L Potassium 4.0 3.3-5.1 mmol/L Chloride 105 96-108 mmol/L Carbon Dioxide 29 22-29 mmol/L Anion Gap 11 12-20 Blood Urea Nitrogen 18 9-16 mg/dL Creatinine 0.81 0.5-1.4 mg/dL Estimated Glomerular Filt Rate > 60 NOTE: For -Senegalese individuals, multiply the result by 1.210. Chronic [...] Panel Reviewed date:02/28/2024 12:41:23 PM Interpretation: Performing Lab:[address] [phone] Notes/Report: Triglycerides 103 <150 mg/dL Desirable Triglyceride: [...] (Free>4and<10) Reviewed date:02/28/2024 02:53:01 PM Interpretation: Performing Lab:[address] [phone] Notes/Report: PSA,Total (Free>4and<10) 1.08 0.00-4.00 ng/mL A [...] t Reviewed date:02/28/2024 02:55:19 PM Interpretation: Performing Lab:[facility], [address] [place] [phone] Notes/Report: [id number] Urine, Clean Catch Color Urine Yellow Appearance Urine Clear PH 7.5 5.0-9.0 Glucose Urine UA Negative Negative mg/dL Urine Blood Negative Negative Specific [place] - Urine 1.015 1.005-1.025 Urine Protein Negative [...] Pathology Reviewed date:05/02/2024 04:33:20 PM Interpretation: Performing Lab:[facility], [address] [place] [phone] Notes/Report: --- Name: Danelle Boswell Age/Sex: 63/M : 1960 Unit#: [id number] Attend Dr: Singh Samuels MD Re04/27/24 Status : [facility] Location: [facility] Disch: --- SPEC : [id number] RECD : 04/27/24-1039 STATUS: KULDEEPJeanna LANCASTER NUM: [id number] RONEN: 04/27/24-1018 [facility] DR: Singh Samuels MD ENTERED: 04/27/24 14 SP TYPE: Surgical OTHR DR: Amador Menon MD ORDERED: HE Stain/6, Gross Micro [...] Received in 2 parts. A. Received in forma kal labeled ?right colon polyp? are 2 fragments of translucent salmon- white soft tissue measuring 0.2 and 0.2 cm in greatest dimension which are entirely submitted for microscopic examination, 2 pieces in cassette A. B. Received in forma kal labeled ?polyp at 60 cm? is a fragment of salmon-white soft tissue measuring 0.3 cm in greatest dimension which is entirely submitted for microscopic examination, 1 piece in cassette [facility] Copies To: Amador Menon MD [facility] [address] [place] [address] CONTINUED ON NEXT PAGE --- Name: Danelle Boswell Age/Sex: 63/M : 1960 Unit#: [id number] Attend Dr: Singh Samuels MD Re04/27/24 Status : [facility] Location: [facility] Disch: --- SPEC : [id number] RECD : 04/27/24-1040 STATUS: CAROLYNE GOLDSTEINDae NUM: [id number] RONEN: 04/27/24-[address]: Singh Samuels MD ENTERED: 04/27/24- 14 SP TYPE: Surgical OTHR DR: Amador Menon MD ORDERED: JOSE Stain/6, Thompson Encinas L4/2 Copies To: (Continued) Singh Samuels MD [address] [place] [address] --- Signed (signature on file) William Celeste MD 05/02/24 1532 --- END OF REPORT Pathology Reviewed date:10/12/2024 12:43:58 PM Interpretation: Performing Lab:[facility], [address] [place] [phone] Notes/Report: --- Name: Danelle Boswell Renzo Age/Sex: 64/M : 1960 Unit#: [id number] Attend Dr: Rodriguez Dupont MD Re10/11/24 Status : [facility] Location: [facility] Disch: --- SPEC : [id number] RECD: 10/11/24 STATUS: CAROLYNE LANCASTER NUM: [id number] RONEN: 10/11/[address]: Rodriguez Dupont MD ENTERED: 10/11/24 54 SP TYPE: Surgical OTHR DR: Amador Menon MD ORDERED: Gross Micro L2 Diagnosis Right inguinal herni a, herniorrhaphy: Mesothelial-lined fibrovascular and adipose tissue with chronic inflammation, consistent with hernia sac. Clinical History Unilateral inguinal hernia, without obstruction or gangrene, not specified as recurrent Microscopic Description Microscopic sections reviewed. Material Received Hernia sac Gross Description Received in formalin labeled ?hernia sac? is a portion of pink-white translucent, membranous tissue measuring 4.0 x 2.1 x 0.2 cm in greatest dimension. The outer surface has a small amount of adherent yellow adipose tissue. The inner lining is smooth and grossly unremarkable. President Ceo & Founder sections are submitted for microscopic examination, 2 pieces in cassette [address] [facility] Copies To: Amador Menon MD [facility] [address] [facility] [address] [place] [address] Rodriguez Dupont MD [facility] [address] [place] [address] --- Signed (signature on file) William Celeste MD 10/12/24 1231 --- END OF REPORT Reason For Referral Reason [...] Reason colonoscopy Diagnosis 1 Colon cancer screeni ng (Z12.11) Referral Organization Amador Menon MD Referring Provider First Name Amador Referring Provider Last Name Sinan Referring Provider Speciality Internal edicine Referred Provider Singh Samuels Referred Provider [...] Last Name Sinan Referring Provider Speciality Internal edicine Referred Provider Rodriguez Dupont Referred Provider Specialty Surgery General Notes Kristan Roberson 0 09/18/2024 09:29:17 AM >patient is aware of appt Referral Priority Routine Referral Appointment Date 09/19/2024 Medications Medication SIG (Take, Route, Fr equency, Duration) Notes Start Date End Date Status Ketoconazole 2 % 1 application Production Line ally Once a day for 30 days Active Immunizations Vaccine Route Administration Date Status Comme nts SARS-COV-2 Pfizer Unknown 11/25/2020 Administered SARS-COV-2 Pfizer Unknown 12/16/2020 Administered SARS-COV-2 Pfizer Unknown 07/18/2021 Administered TDaP Unknown 10/01/2022 Administered Hepatitis B Unknown 10/01/2022 Administered Hepatitis A (adult) Unknown 10/08/2022 Administered [facility] Shingrix Unknown 10/08/2022 Administered [facility] [...] Status Risk Notes Problem History of splenectomy (864277079) History of splenectomy (Z90.81) Active confirmed Problem History of right hip replacement (320309091183093 8) History of right hip replacement (Z96.641) Active confirmed Problem History of left hip replacement (471064232511097 7) History of left hip replacement (Z96.642) [...] Location Date Provider Diagnosis Amador Menon MD [address] [place] [phone] 03/13/2024 Amador Menon Adult general medical exam Z00.00 ; Colon cancer screening Z12.11 and Encounter for screening for depression Z13.31 Amador Menon MD [address] [place] [address] [address] [place] [id number] 02/28/2024 Amador Menon Blood tests for routine general physical examination Z00.00 Amador Menon MD [address] [place] [address] [address] [place] [id number] 10/28/2023 Amador Menon Rectal bleeding K62.5 Amador Menon MD [address] [place] [address] [address] [place] [id number] 09/18/2024 Amador Menon Non-recurrent unilateral inguinal hernia [...] out without diarrhea/ make appt with dr franklin and maycol for colonoscopy/ being seen today 09/18/2024 Non-recurrent unilateral inguinal hernia without obstruction or gangrene (ICD-10 - K40.90) is going to try to see dr rubi who did his previous surgery. if she is availabale will do a referral there 03/13/2024 Encounter for screening for depression (ICD-10 - Z13.31) negative screen Plan Of Treatment Next Appt Details Provider Name:Amador Andersen ier, 03/08/2025 07:45:00 AM, [address] [place] [address], Suite [facility], [place], [place], [phone], Provider Name:Amador Andersen ier, 03/15/2025 01:00:00 PM, [address] [place] [address], [address], [place], [place], [phone], Insurance Providers Payer Name Payer Address Payer Phone Subscriber Number Group Number Insured Name Patient Relationship to Insured Coverage Start Date Coverage End Date [employer] [address] [place], [place] [phone] [id number] Andrea Boswell Self - patient is the insured Medical (General) History Medical History History ICD Code colonoscopy 3 years ago. domonique vega he is due 2019 colonoscopy scheduled mar 2024. 04/27/24 colonoscopy pending path
--- OUTSIDE RECORDS SUMMARY | 2024-10-23 09:54 | XMS_ITS ---
Author Organization [facility] Address [address] [place] [address] Care Team Providers Care Batch Blender Name Role Phone Amador Menon MD Primary Care Provider Singh Saldana Jr [phone] REASON FOR VISIT screening Encounters Encounter Location Date Provider Diagnosis [facility] Outpatient [address], [place] [phone] 04/27/2024 Singh Samuels Jr Colon cancer screening Z12.11 and Colon polyps K63.5 ASSESSMENTS Encounter Date Diagnosis Assessment Notes Treatment Notes Treatment Clinical Notes 04/27/2024 Colon cancer screening (ICD-10 - Z12.11) 04/27/2024 Colon polyps (ICD-10 - K63.5) PLAN OF TREATMENT No Information
--- OUTSIDE RECORDS SUMMARY | 2024-10-23 09:54 | XMS_ITS ---
Author Organization [facility] Address [address] [place] [address] Care Team Providers Care Bioinformatics Scientist Name Role Phone Amador Menon MD Primary Care Provider Singh Saldana Jr REASON FOR VISIT pathology Encounters Encounter Location Date Provider Diagnosis [facility] [address] [place] [address] 05/09/2024 Singh Samuels Jr PLAN OF TREATMENT No Information
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
--- OUTSIDE RECORDS SUMMARY | 2024-10-23 09:54 | XMS_ITS ---
Author Organization Amador Menon MD Address [address] [place] [phone] Care Team Providers Care Egg Processor Name Role Phone Amador Menon Primary Care [...] Date Status Ketoconazole 2 % 1 application Durable Medical Equipment Repairer ally Once a day for 30 days [...] kg/m2 03/13/2024 weight is down 8 pounds [facility] e 24 Encounters Encounter Location Date Provider Diagnosis Amador Menon MD [address] [place] [address] [address] [place], [place] [phone] 03/13/2024 Amador Menon Adult general medical exam [...] Date Notes Ketoconazole 2 % 1 application Durable Medical Equipment Repairer ally Once a day for 30 days Treatment Notes Assessment Notes Colon cancer screening guaiac negative Encounter for screening for depression n egative screen Next Appt Details Follow Up: 1 Year, Reason: Provider Name:Amador uzniga, 03/08/2025 07:45:00 AM, [address] [place] [address], Suite [facility], [place], [place], [phone], Provider Name:Amador zuniga, 03/15/2025 01:00:00 PM, [address] [place] [address], [address], [place], [place], [phone], Progress Notes * Andrea BOSWELLDOB:[birth year] (63 yo M)Acc No.[id number]:03/13/2024 Progress Notes Patient:?Andrea Boswell Provider:?Amador Menon MD :1960???Age:63 Y???Sex:Male Isaac e:03/13/2024 Address:[address] [place] [address] Mandy green [id number] Subjective: * Chief Complaints: * ???Annual visitC/o [...] status: . no Travel outside of the [place]. * Medications:?TakingKetoconaz ole 2 % Cream [...] mg/dL ?Urine Blood Negative Negative - ?Specific [place] - Urine 1.015 1.005-1.025 - ?Urine Protein [...] Auto 0.000 0.0-0. 012 - X10*3/uL ???Lab:[facility] (Order Date - 02/28/2024) [...] for depression? Notes: negative screen.?? * Procedure Codes:?28535 TEST FOR BLOOD, FECES * Preventive Medicine:? ??Counseling:?Care goal follow-up plan:?Counseling for abnormal BMI provided?Yes,?Above Normal BMI Follow-up?Giving encouragement to exercise.? * Follow Up:?1 Year * * Sign off status: Completed true * Provider:?Amador Menon MD Date:?0 03/13/2024 Generated for Linnea crooks/Olvin/Zay on:?10/23/2024 09:53 AM EST History and Physical Notes * [...]
--- OUTSIDE RECORDS SUMMARY | 2024-10-23 09:54 | XMS_ITS ---
Author Organization [facility] Address [address] [place] [address] Care Team Providers Care Retail Sales Merchandiser Name Role Phone Amador Menon MD Primary Care Provider Singh Saldana Jr [phone] ALLERGIES No Known Allergies REASON FOR [...] Problem Colon cancer screening (Z12.11) Active confirmed 734904825 Problem Rectal bleeding (K62.5) Active confirmed 06835917 Problem Hemorrhoids, unspecified hemorrhoid type (K64.9) Active confirmed 03428711 VITAL SIGNS Temperature 97.3 degrees Fahrenheit 03/07/20 24 Blood pressure systolic 000 mm Hg 03/07/20 24 Blood pressure diastolic 00 mm Hg 024 Height 5 ft 3 in in 03/07/2024 Weight 158 lbs 03/07/2024 BMI 27.99 kg/m2 03/07/2024 Encounters Encounter Location Date Provider Diagnosis [facility] [address] [place] [address] 03/07/2024 Singh Samuels Jr Colon cancer screening [...] General Examination GENERAL APPEARANCE: in no ac [place] distress HEAD: normocephalic EYES: sclera non-icteric NECK/THYROID: no lymphadenopathy HEART: S1, S2 normal, no mu rmurs CHEST: normal shape and exp ansion LUNGS: clear to auscultatio n bilaterally ABDOMEN: soft, nontender, non distended, bowel sounds present, no organomegaly SKIN: anicteric EXTREMITIES: no clubbing, cyanosi s, or edema PSYCH: cognitive function i ntact ORAL CAVITY: mucosa moist
--- OUTSIDE RECORDS SUMMARY | 2024-10-23 09:54 | XMS_ITS ---
Author Organization Amador Menon MD Address [address] [place] [phone] Care Team Providers Care Spool Cleaner Hand Name Role Phone Amador Menon Primary Care Provider [phone] Allergies No Known Allergies Reason For Referral [...] Date Status Ketoconazole 2 % 1 application Building Code Administrator ally Once a day for 30 days Active Vital Signs Blood pressure systolic 132 mm Hg 09/18/19 25 Blood pressure diastolic 90 mm Hg 025 Height 63 in 09/18/2024 Weight 168 lbs 09/18/2024 BMI 29.76 kg/m2 09/18/2024 weight is up 7 pounds since 03-13-24 Encounters Encounter Location Date Provider Diagnosis Amador Menon MD [address] [place] [phone] 09/18/2024 Amador Menon Non-recurrent unilateral inguinal hernia [...] Provider Name:Amador Andersen ier, 03/08/2025 07:45:00 AM, [address] [place] [address], [place] [address], [place], [phone], Provider Name:Amador Andersen ier, 03/15/2025 01:00:00 PM, [address] [place] [address], Suite [facility], [place], [phone], Progress Notes * Andrea BOSWELLDOB:[birth year] (64 yo M)Acc No.[id number]:09/18/2024 Progress Notes Patient:?Andrea BOSWELL Provider:?Amador Menon MD :1960???Age:64 Y???Sex:Male Isaac e:09/18/2024 Address:[address] [place], [place] [phone] Subjective: * Chief Complaints: * ? hernia [...] MD Date:?0 09/18/2024 Generated for Linnea crooks/Olvin/eTransmitting on:?10/23/2024 09:54 AM EST History and Physical Notes * [...]
--- OUTSIDE RECORDS SUMMARY | 2024-10-23 09:54 | XMS_ITS ---
Author Organization Amador Menon MD Address [address] [place] [phone] Care Team Providers Care Special Effects Makeup Artist Name Role Phone Amador Menon Primary Care Provider Results Component Value Reference Range Notes Complete Blood Count Auto Di ff Reviewed date:02/28/2024 04:20:23 PM Interpretation: Performing Lab:[facility], [address] [place] [phone] Notes/Report: White Blood Count 8.4 4.8-10.8 X10*3/uL [...] NRBC Abs Auto 0.000 0.0-0.012 X10*3/uL Comprehensive [place]. Panel Fa Reviewed date:02/28/2024 12:46:16 PM Interpretation: Performing Lab:[facility], [address] [place] [phone] Notes/Report: Sodium 141 135-145 mmol/L Potassium 4.0 3.3-5.1 mmol/L Chloride 105 96-108 mmol/L Carbon Dioxide 29 22-29 mmol/L Anion Gap 11 12-20 Blood Urea Nitrogen 18 9-16 mg/dL Creatinine 0.81 0.5-1.4 mg/dL Estimated Glomerular Filt Rate > 60 NOTE: For -Zimbabwean individuals, multiply the result by 1.210. Chronic [...] Panel Reviewed date:02/28/2024 12:41:23 PM Interpretation: Performing Lab:[facility], [address] [place] [phone] Notes/Report: Triglycerides 103 <150 mg/dL Desirable Triglyceride: [...] (Free>4and<10) Reviewed date:02/28/2024 02:53:01 PM Interpretation: Performing Lab:[address] [address] Notes/Report: PSA,Total (Free>4and<10) 1.08 0.00-4.00 ng/mL A [...] t Reviewed date:02/28/2024 02:55:19 PM Interpretation: Performing Lab:[facility], [address] [place] [phone] Notes/Report: [id number] Urine, Clean Catch Color Urine Yellow Appearance Urine Clear PH 7.5 5.0-9.0 Glucose Urine UA Negative Negative mg/dL Urine Blood Negative Negative Specific [place] - Urine 1.015 1.005-1.025 Urine Protein Negative [...] Menon MD [address] [place], [place] [phone] 02/28/2024 Amador Menon Blood tests for routine general physical examination Z00.00 Assessments Encounter Date Diagnosis (ICD Code) Assessment Notes Treatment Notes Treatment Clinical Notes Section Notes 02/28/2024 Blood tests for routine general physical examination (ICD-10 - Z00.00) Plan Of Treatment Next Appt Details Provider Name:Amador zuniga, 03/08/2025 07:45:00 AM, [address], Suite [facility], [place], [phone], Provider Name:Amador zuniga, 03/15/2025 01:00:00 PM, [address] [place] [address], [address], [place], [phone], Progress Notes * Andrea BOSWELLDOB:[birth year] (64 yo M)Acc No.[id number]:02/28/2024 Progress Note Patient:?Andrea BOSWELL Provider:?Amador Menon MD :1960???Age:63 Y???Sex:Male Isaac e:02/28/2024 Address:[address] [place] [address] [facility] Subjective: * Chief Complaints: * ???1. Yearly labs. * Medical History:? Objective: * Vitals:? Assessment: * Assessment: 1.?Blood tests for routine g eneral physical examination - Z00.00 (Primary)??? Plan: * Treatment: * Procedure Codes:?02056 VENIP UNCT, ROUTINE* * * The named appointment provid er may or may not be the originator of this progress note, and it is not deemed complete until electronically signed by the appointment provider. Sign off status: Pending * Provider:?Amador Menon MD Date:?0 02/28/2024 Generated for Luisi valeriy/Olvin/eTransmitting on:?10/23/2024 09:54 AM EST
== END 2024-10-23 09:27 | disposition home or self-care (01) ==
PROVIDERS: PCP Internal Medicine; Visit Provider Surgery
DX: K40.90 Unilateral inguinal hernia, without obstruction or gangrene, not specified as recurrent (principal)
CPT/HCPCS: 99024

== ENCOUNTER 2024-11-20 08:43 | Outpatient (AMB) | payer BC, SELFPAY ==
--- NOTE | 2024-11-20 09:14 | A.OFFVIS_ITS ---
Vital Signs 11/20/24 09:17 Height 53 ft Weight 170 lb 6 oz BMI 0.3 BP 149/96 H Blood Pressure Location Lt brachial Position Sitting Pulse 61 Intake Visit Reasons: one month post RIH w/mesh Intake Note: Patient is seen in office for one month follow up visit, post right inguinal hernia repair. Pt c/o: denies any concerns [employer] Required: No Accompanied by: Self / Same As Patient Allergies hydromorphone [From Dilaudid] Adverse Reaction (Verified 11/20/24 09:17) Nausea Medication List - Last Reconciled 11/20/24 by Rodriguez Dupont MD ketoconazole 2% appl topical DAILY HPI Comments Details: 64-year-old male patient returning 1 month following repair of a right inguinal hernia. He feels well and denies any ongoing inguinal symptoms. He feels ready to go back to work. Denies nausea, vomiting, fever or chills. [facility] Medical History No pertinent past medical history Surgical History History of right inguinal hernia repair (10/11/24) Hx of colonoscopy (03/2024) History of hemorrhoidectomy (10/2023) S/P colon resection Hx of hernia repair History of bilateral total hip arthroplasty Hx of splenectomy Social History Household Members: Spouse Alcohol intake: current Alcohol intake frequency: holidays/special occasions only Patient Tobacco Use Status: Never used Tobacco Review of Systems Const All systems reviewed & are unremarkable except as noted in HPI and below Physical Exam Const General: no acute distress Nutritional Appearance: well nourished Orientation/consciousness: patient oriented x3 Limitations: no limitations Resp Effort & Inspection: normal respiratory effort GI Other: Right inguinal incision is clean, dry, and intact without redness or discharge. No hernias noted with Valsalva maneuvers. Neuro General: patient oriented x3 Extrem General: Yes no clubbing, cyanosis or edema Assessment & Plan Assessment & Plan (1) Reducible right inguinal hernia: Code(s): K40.90 - Unilateral inguinal hernia, without obstruction or gangrene, not specified as recurrent Category: Medical Plan 64-year-old male patient status post repair of right inguinal hernia one-month ago. His wounds are clean, dry, and intact without redness or discharge. There is no evidence of wound infection or hernia recurrence. He may resume normal activity without restrictions and should follow up as needed. Coding Level of Care Code Global (82277) Diagnoses Reducible right inguinal hernia K40.90
[2024-11-20 09:17] VITALS: BP 149/96; PULSE 61
--- OUTSIDE RECORDS SUMMARY | 2024-11-20 09:18 | XMS_ITS ---
Author Organization [facility] Address [address] [place] [address] Care Team Providers Care Sleeper Cutter Name Role Phone Amador Menon MD Primary Care Provider Singh Saldana Jr REASON FOR VISIT screening Encounters Encounter Location Date Provider Diagnosis [facility] Outpatient [address] [place], [place] [phone] 04/27/2024 Singh Samuels Jr Colon cancer screening Z12.11 and Colon polyps K63.5 Assessments Encounter Date Diagnosis (ICD Code) Assessment Notes Treatment Notes Treatment Clinical Notes Section Notes 04/27/2024 Colon cancer screening (ICD-10 - Z12.11) 04/27/2024 Colon polyps (ICD-10 - K63.5) Plan Of Treatment No Information Progress Notes * NAM DALEYDOB:[birth year] (64 yo M)Acc No.[id number]:04/27/2024 COLON WITH MAC Patient:?NAM DALEY Provider:?Singh Samuels MD :1960???Age:63 Y???Sex:Male Isaac e:04/27/2024 Address:[address] [place] [address] Pcp:Amador Menon MD Subjective: * Chief Complaints: * ???1. Screening. * Medical History:? Objective: * Vitals:? Assessment: * Assessment: 1.?Colon cancer screening - Z12.11 (Primary)???2.?Colon polyps - K63.5??? Plan: * Treatment: * Procedure Codes:?19852 COLON OSCOPY AND BIOPSY * * The named appointment provid er may or may not be the originator of this progress note, and it is not deemed complete until electronically signed by the appointment provider. Sign off status: Pending * Provider:?Singh Samuels MD Date:?0 04/27/2024 Generated for Linnea crooks/Olvin/Ingrisitting on:?11/20/2024 09:18 AM EDT
--- OUTSIDE RECORDS SUMMARY | 2024-11-20 09:18 | XMS_ITS | Patient Health Record ---
Author Organization Amador Menon MD Address [address] [place] [phone] Care Team Providers Care Cart Pusher Name Role Phone Amador Menon Primary Care Provider Allergies No Known Allergies Results Component Value Reference Range Notes Pathology Reviewed date:11/24/2023 12:43:58 PM Interpretation: Performing Lab:[facility], [address] [place] [phone] Notes/Report: --- Name: Danelle Boswell renzo Anderson Age/Sex: 63/M : 1960 Unit#: [id number] Attend Dr: Rodriguez Dupont MD Re11/23/23 Status : [facility] Location: [facility] Disch: --- SPEC : [id number] RECD : 11/23/23 STATUS: CAROLYNE LANCASTER NUM: [id number] RONEN: 11/23/23 [facility] DR: Rodriguez Dupont MD ENTERED: 11/23/23- 30 [...] 0.5-1.0 x 0.45 cm edematous and erythematous, gloden-t an and salmon-pink portion of rectoanal mucosa and submucosa which is focally eroded and velvety. The margins are inked and the specimen is sectioned to reveal edematous, salmon-pink cut surfaces, entirely submitted in a cassette labeled A. CEDS Copies To: Amador Menon MD [address] [place] [address] Rodriguez Dupont MD [address] [place] [address] [place] [address] --- Signed (signature on file) Leyla Mora 11/24/23 1233 --- END OF REPORT Complete Blood Count Auto Di ff Reviewed date:02/28/2024 04:20:23 PM Interpretation: Performing Lab:[facility], [address] [place] [phone] Notes/Report: White Blood Count 8.4 4.8-10.8 X10*3/uL [...] NRBC Abs Auto 0.000 0.0-0.012 X10*3/uL Comprehensive [place]. Panel Fa st Reviewed date:02/28/2024 12:46:16 PM Interpretation: Performing Lab:[facility], [address] [place] [phone] Notes/Report: Sodium 141 135-145 mmol/L Potassium 4.0 3.3-5.1 mmol/L Chloride 105 96-108 mmol/L Carbon Dioxide 29 22-29 mmol/L Anion Gap 11 12-20 Blood Urea Nitrogen 18 9-16 mg/dL Creatinine 0.81 0.5-1.4 mg/dL Estimated Glomerular Filt Rate > 60 NOTE: For -Dutch individuals, multiply the result by 1.210. Chronic [...] Panel Reviewed date:02/28/2024 12:41:23 PM Interpretation: Performing Lab:[address] [address] Notes/Report: Triglycerides 103 <150 mg/dL Desirable Triglyceride: [...] (Free>4and<10) Reviewed date:02/28/2024 02:53:01 PM Interpretation: Performing Lab:[address] [address] Notes/Report: PSA,Total (Free>4and<10) 1.08 0.00-4.00 ng/mL A [...] t Reviewed date:02/28/2024 02:55:19 PM Interpretation: Performing Lab:[facility], [address] [place] [phone] Notes/Report: [id number] 0745 Urine, Clean Catch Color Urine Yellow Appearance Urine Clear PH 7.5 5.0-9.0 Glucose Urine UA Negative Negative mg/dL Urine Blood Negative Negative Specific [place] - Urine 1.015 1.005-1.025 Urine Protein Negative [...] Pathology Reviewed date:05/02/2024 04:33:20 PM Interpretation: Performing Lab:[facility], [address] [place] [phone] Notes/Report: --- Name: Danelle Boswell Age/Sex: 63/M : 1960 Unit#: [id number] Attend Dr: Singh Samuels MD Re04/27/24 Status : [facility] Location: [facility] Disch: --- SPEC : [id number] RECD : 04/27/24-1039 STATUS: KULDEEPJeanna LANCASTER NUM: [id number] RONEN: 04/27/24-1018 [facility] DR: Singh Samuels MD ENTERED: 04/27/24 14 [...] microscopic examination, 1 piece in cassette B. [facility] Copies To: Amador Menon MD [facility] [address] [place] [address] CONTINUED ON NEXT PAGE --- Name: Danelle Boswell Age/Sex: 63/M : 1960 Unit#: [id number] Attend Dr: Singh Samuels MD Re04/27/24 Status : [facility] Location: [facility] Disch: --- SPEC : [id number] RECD : 04/27/24-1040 STATUS: CAROLYNE GOLDSTEINDae NUM: [id number] RONEN: 04/27/24-[address]: Singh Samuels MD ENTERED: 04/27/24- 14 SP TYPE: Surgical OTHR DR: Amador Menon MD ORDERED: JOSE Stain/6, Thompson Encinas L4/2 Copies To: (Continued) Singh Samuels MD [address] [place] [address] --- Signed (signature on file) William Celeste MD 05/02/24 1532 --- END OF REPORT Pathology Reviewed date:10/12/2024 12:43:58 PM Interpretation: Performing Lab:[facility], [address] [place] [phone] Notes/Report: --- Name: Danelle Boswell Renzo Age/Sex: 64/M : 1960 Unit#: [id number] Attend Dr: Rodriguez Dupont MD Re10/11/24 [place] : [facility] [place]: [facility] Disch: --- SPEC : [id number] RECD: 10/11/24 STATUS: CAROLYNE LANCASTER NUM: [id number] RONEN: 10/11/[address]: Rodriguez Dupont MD [...] inner lining is smooth and grossly unremarkable. Pt Escort sections are submitted for microscopic examination, 2 pieces in cassette A. [facility] Copies To: Amador Menon MD [facility] [address] [facility] [address] [place] [address] Rodriguez Dupont MD [facility] [address] [place] [address] --- Signed (signature on file) William Celeste MD 10/12/24 1231 --- END OF REPORT Reason For Referral Reason inguinal hernia pl [...] Date Status Ketoconazole 2 % 1 application [employer]ire Recapping Machine Operator ally Once a day for 30 days [...] Status Risk Notes Problem History of splenectomy (254412751) History of splenectomy (Z90.81) Active confirmed Problem History of right hip replacement (323469838662256 8) History of right hip replacement (Z96.641) Active confirmed Problem History of left hip replacement (117460986154229 7) History of left hip replacement (Z96.642) [...] Diagnosis Amador Menon MD [address] [place] [phone] 03/13/2024 Amador Menon Adult general medical exam Z00.00 ; Colon cancer screening Z12.11 and Encounter for screening for depression Z13.31 Amador Menon MD [address] [place] [address] [place] [phone] 02/28/2024 Amador Menon Blood tests for routine general physical examination Z00.00 Amador Menon MD [address] [place] [address] Drive [address] [place] [phone] 09/18/2024 Amador Menon Non-recurrent unilateral inguinal hernia without obstruction or gangrene K40.90 Assessments Encounter Date Diagnosis (ICD Code) Assessment Notes Treatment Notes Treatment Clinical Notes Section Notes 03/13/2024 Adult general medical exam (ICD-10 - Z00.00) 03/13/2024 Colon cancer screening (ICD-10 - Z12.11) guaiac negative 02/28/2024 Blood tests for routine general physical examination (ICD-10 - Z00.00) 09/18/2024 Non-recurrent unilateral inguinal hernia without obstruction or gangrene (ICD-10 - K40.90) is going to try to see dr rubi who did his previous surgery. if she is availabale will do a referral there 03/13/2024 Encounter for screening for depression (ICD-10 - Z13.31) negative screen Plan Of Treatment Next Appt Details Provider Name:Amador zuniga, 03/08/2025 07:45:00 AM, [address] [place] [address], [address], [phone], Provider Name:Amador zuniga, 03/15/2025 01:00:00 PM, [address] [place] [address], [address], [phone], Insurance Providers Payer Name Payer Address Payer Phone Subscriber Number Group Number Insured Name Patient Relationship to Insured Coverage Start Date Coverage End Date [employer] [address] [place], [place] [id number] Andrea Boswell Self - patient is the insured Medical (General) History Medical History History ICD Code colonoscopy 3 years ago. domonique vega he is due 2019 colonoscopy scheduled mar 2024. 04/27/24 colonoscopy pending path
--- OUTSIDE RECORDS SUMMARY | 2024-11-20 09:18 | XMS_ITS ---
Author Organization [facility] Address [address] [place] [address] Care Team Providers Care Residential Sales Name Role Phone Amador Menon MD Primary Care Provider Singh Saldana Jr REASON FOR VISIT pathology Encounters Encounter Location Date Provider Diagnosis [facility] [address] [place] [address] 05/09/2024 Singh Samuels Jr Plan Of Treatment No Information Progress Notes * NAM DALEYDOB:[birth year] (63 yo M)Acc No.[id number]:05/09/2024 Patient:?NAM DALEY :1960???Age:63 Y???Sex:Male Address:[address] [place] [address], [address] * true * Date:? Generated for Luisi valeriy/Olvin/eTransmitting on:?11/20/2024 09:17 AM EDT
--- OUTSIDE RECORDS SUMMARY | 2024-11-20 09:18 | XMS_ITS ---
Author Organization Amador Menon MD Address [address] [place] [phone] Care Team Providers Care Cribber Name Role Phone Amador Menon Primary Care [...] Date Status Ketoconazole 2 % 1 application Front Desk Officer ally Once a day for 30 days [...] kg/m2 03/13/2024 weight is down 8 pounds [facility] e 24 Encounters Encounter Location Date Provider Diagnosis Amador Menon MD [address] [place] [address] [address] [place], [place] [phone] 03/13/2024 Amador Menon Adult general medical exam [...] Date Notes Ketoconazole 2 % 1 application Front Desk Officer ally Once a day for 30 days Treatment Notes Assessment Notes Colon cancer screening guaiac negative Encounter for screening for depression n egative screen Next Appt Details Follow Up: 1 Year, Reason: Provider Name:Amador zuniga, 03/08/2025 07:45:00 AM, [address] [place] [address], Suite [facility], [place], [place], [phone], Provider Name:Amador zuniga, 03/15/2025 01:00:00 PM, [address] [place] [address], [address], [place], [place], [phone], Progress Notes * Andrea BOSWELLDOB:[birth year] (63 yo M)Acc No.[id number]:03/13/2024 Progress Notes Patient:?Andrea Boswell Provider:?Amador Menon MD :1960???Age:63 Y???Sex:Male Isaac e:03/13/2024 Address:[address] [place] [address] [id number] Subjective: * Chief Complaints: * ???Annual visitC/o [...] status: . no Travel outside of the [place]. * Medications:?TakingKetoconaz ole 2 % Cream [...] mg/dL ?Urine Blood Negative Negative - ?Specific [place] - Urine 1.015 1.005-1.025 - ?Urine Protein [...] Auto 0.000 0.0-0. 012 - X10*3/uL ???Lab:[facility] [place]. P olvin Fast (Order Date - 02/28/2024) [...] for depression? Notes: negative screen.?? * Procedure Codes:?22300 TEST FOR BLOOD, FECES * Preventive Medicine:? ??Counseling:?Care goal follow-up plan:?Counseling for abnormal BMI provided?Yes,?Above Normal BMI Follow-up?Giving encouragement to exercise.? * Follow Up:?1 Year * * Sign off status: Completed true * Provider:?Amador Menon MD Date:?0 03/13/2024 Generated for Linnea crooks/Olvin/eTurvashi on:?11/20/2024 09:18 AM EDT History and Physical Notes * [...]
--- OUTSIDE RECORDS SUMMARY | 2024-11-20 09:19 | XMS_ITS ---
Author Organization Amador Menon MD Address [address] [place] [phone] Care Team Providers Care Military Equipment Specialist Name Role Phone Amador Menon Primary Care Provider Results Component Value Reference Range Notes Complete Blood Count Auto Di ff Reviewed date:02/28/2024 04:20:23 PM Interpretation: Performing Lab:[facility], [address] [place] [phone] Notes/Report: White Blood Count 8.4 4.8-10.8 X10*3/uL [...] NRBC Abs Auto 0.000 0.0-0.012 X10*3/uL Comprehensive [place]. Panel Fa Reviewed date:02/28/2024 12:46:16 PM Interpretation: Performing Lab:[facility], [address] [place] [phone] Notes/Report: Sodium 141 135-145 mmol/L Potassium 4.0 3.3-5.1 mmol/L Chloride 105 96-108 mmol/L Carbon Dioxide 29 22-29 mmol/L Anion Gap 11 12-20 Blood Urea Nitrogen 18 9-16 mg/dL Creatinine 0.81 0.5-1.4 mg/dL Estimated Glomerular Filt Rate > 60 NOTE: For -Ethiopian individuals, multiply the result by 1.210. Chronic [...] Panel Reviewed date:02/28/2024 12:41:23 PM Interpretation: Performing Lab:[facility], [address] [place] [phone] Notes/Report: Triglycerides 103 <150 mg/dL Desirable Triglyceride: [...] (Free>4and<10) Reviewed date:02/28/2024 02:53:01 PM Interpretation: Performing Lab:[address] [phone] Notes/Report: PSA,Total (Free>4and<10) 1.08 0.00-4.00 ng/mL A [...] t Reviewed date:02/28/2024 02:55:19 PM Interpretation: Performing Lab:[facility], [address] [place] [phone] Notes/Report: [id number] 0745 Urine, Clean Catch Color Urine Yellow Appearance Urine Clear PH 7.5 5.0-9.0 Glucose Urine UA Negative Negative mg/dL Urine Blood Negative Negative Specific [place] - Urine 1.015 1.005-1.025 Urine Protein Negative [...] Menon MD [address] [place], [place] [phone] 02/28/2024 Amador Menon Blood tests for routine general physical examination Z00.00 Assessments Encounter Date Diagnosis (ICD Code) Assessment Notes Treatment Notes Treatment Clinical Notes Section Notes 02/28/2024 Blood tests for routine general physical examination (ICD-10 - Z00.00) Plan Of Treatment Next Appt Details Provider Name:Amador zuniga, 03/08/2025 07:45:00 AM, [address], Suite [facility], [place], [phone], Provider Name:Amador zuniga, 03/15/2025 01:00:00 PM, [address] [place] [address], [address], [place], [place], [phone], Progress Notes * Andrea BOSWELLDOB:[birth year] (64 yo M)Acc No.[id number]:02/28/2024 Progress Note Patient:?Andrea BOSWELL Provider:?Amador Menon MD :1960???Age:63 Y???Sex:Male Isaac e:02/28/2024 Address:[address] [place], [place] [phone] Subjective: * Chief Complaints: * ???1. Yearly labs. * Medical History:? Objective: * Vitals:? Assessment: * Assessment: 1.?Blood tests for routine g eneral physical examination - Z00.00 (Primary)??? Plan: * Treatment: * Procedure Codes:?05286 VENIP UNCT, ROUTINE* * * The named appointment provid er may or may not be the originator of this progress note, and it is not deemed complete until electronically signed by the appointment provider. Sign off status: Pending * Provider:?Amador Menon MD Date:?0 02/28/2024 Generated for Luisi ng/Fasheag/eTransmitting on:?11/20/2024 09:18 AM EDT
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
--- OUTSIDE RECORDS SUMMARY | 2024-11-20 09:19 | XMS_ITS ---
Author Organization Amador Menon MD Address [address] [place] [phone] Care Team Providers Care Optometry Doctor Name Role Phone Amador Menon Primary Care [...] Date Status Ketoconazole 2 % 1 application Sample Carrier ally Once a day for 30 days Active Vital Signs Blood pressure systolic 132 mm Hg 09/18/19 25 Blood pressure diastolic 90 mm Hg 025 Height 63 in 09/18/2024 Weight 168 lbs 09/18/2024 BMI 29.76 kg/m2 09/18/2024 weight is up 7 pounds since 03-13-24 Encounters Encounter Location Date Provider Diagnosis Amador Menon MD [address] [place] [phone] 09/18/2024 Amador Menon Non-recurrent unilateral inguinal hernia [...] Provider Name:Amador Andersen ier, 03/08/2025 07:45:00 AM, [address] [place] [address], [place] [address], [place], [phone], Provider Name:Amador Andersen ier, 03/15/2025 01:00:00 PM, [address] [place] [address], Suite [facility], [place], [phone], Progress Notes * Andrea BOSWE[birth year]DOB:[birth year] (64 yo M)Acc No.[id number]:09/18/2024 Progress Notes Patient:?Andrea BOSWELL Provider:?Amador Menon MD :1960???Age:64 Y???Sex:Male Isaac e:09/18/2024 Address:[address] [place], [place] [phone] Subjective: * Chief Complaints: * ? hernia [...] MD Date:?0 09/18/2024 Generated for Linnea crooks/Olvin/eTransmitting on:?11/20/2024 09:19 AM EDT History and Physical Notes * [...]
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
== END 2024-11-20 09:44 | disposition home or self-care (01) ==
LOC: HO.HGS 08:43
PROVIDERS: PCP Internal Medicine; Visit Provider Surgery
DX: K40.90 Unilateral inguinal hernia, without obstruction or gangrene, not specified as recurrent (principal)
CPT/HCPCS: 99024

== ENCOUNTER 2025-03-08 10:38 | Outpatient (REF) | payer BC, SELFPAY ==
--- OUTSIDE RECORDS SUMMARY | 2024-03-13 09:45 | XMS_ITS ---
Author Organization Amador Menon MD Address [address] [place] [id number] Care Team Providers Care Home Lending Officer Name Role Phone Amador Menon Primary Care Provider Allergies No Known Allergies Results Component Value Reference Range Notes Occult Blood, Stool, Guaiac Reviewed date:03/13/2024 02:27:40 PM Interpretation:Negative Performing Lab: Notes/Report: Negative Occult Blood, Stool, Guaiac Neg REASON FOR VISIT annual visit, c/o left ear ache x 1 day Medications Medication SIG (Take, Route, Fr equency, Duration) Notes Start Date End Date Status Ketoconazole 2 % 1 application Harnessmaker ally Once a day for 30 days Active Social History Tobacco Use: Social History Observation Description Date Details (start date - stop date) Never Smoker NA - NA Tobacco Use/Smoking Question Answer Notes Patient is a nonsmoker Additional Findings: Tobacco Non-User Cu rrent non-smoker, currently using no form of tobacco Alcohol Screen Question Answer Notes Did you have a drink contain ing alcohol in the past year? Yes How often did you have a dri nk containing alcohol in the past year? Monthly or less (1 point) How many drinks did you have on a typical day when you were drinking in the past year? 1 or 2 drinks (0 point) How often did you have 6 or more drinks on one occasion in the past year? Never (0 point) Points 1 Interpretation Negative Vital Signs Blood pressure systolic 114 mm Hg 03/13/20 24 Blood pressure diastolic 70 mm Hg 024 Height 63 in 03/13/2024 Weight 161 lbs 03/13/2024 BMI 28.52 kg/m2 03/13/2024 weight is down 8 [facility] Encounters Encounter Location Date Provider Diagnosis Amador Menon MD [address] [place], [place] [phone] 03/13/2024 Amador Menon Adult general medical exam Z00.00 ; Colon cancer screening Z12.11 and Encounter for screening for depression Z13.31 Assessments Encounter Date Diagnosis (ICD Code) Assessment Notes Treatment Notes Treatment Clinical Notes Section Notes 03/13/2024 Adult general medical exam (ICD-10 - Z00.00) 03/13/2024 Colon cancer screening (ICD-10 - Z12.11) guaiac negative 03/13/2024 Encounter for screening for depression (ICD-10 - Z13.31) negative screen Plan Of Treatment Medication Medication Name Sig Start Date Stop Date Notes Ketoconazole 2 % 1 application Harnessmaker ally Once a day for 30 days Treatment Notes Assessment Notes Colon cancer screening guaiac negative Encounter for screening for depression n egative screen Next Appt Details Follow Up: 1 Year, Reason: Provider Name:Amador Andersen ier, 03/15/2025 01:00:00 PM, [address] [place] [address] Drive, [address], [place], [place], [id number], Progress Notes * Andrea BOSWELLDOB:[birth year] (63 yo M)Acc No.[id number]:03/13/2024 Progress Notes Patient: Andrea Somers Provider: Kayla Menon MD :1960 A ge:63 Y S ex:Male Date:03/13/2024 Address:[address] [place] [address] Subjective: * Chief Complaints: * A nnual visitC/o left ear ache x 1 day * HPI: D epression Screening: PHQ-9 L ittle interest or pleasure in doing things N ot at all, F eeling down, depressed, or hopeless N ot at all, T rouble falling or staying asleep, or sleeping too much N ot at all, F eeling tired or having little energy N ot at all, P oor appetite or overeating N ot at all, F eeling bad about yourself or that you are a failure, or have let yourself or your family down N ot at all, T rouble concentrating on things, such as reading the newspaper or watching television N ot at all, M oving or speaking so slowly that other people could have noticed; or the opposite, being so fidgety or restless that you have been moving around a lot more than usual N ot at all, T houghts that you would be better off or of hurting yourself in some way N ot at all, T otal Score 0 . I nterpretation and Intervention D epression Screening Findings N egative, F ollow-Up for Depression : review of PHQ-9 found negative result, no follow-up needed. C ommunication Needs: Communication Needs D oes the patient have a hearing impairment N o, D oes the patient have a vision impairment? Y es, I f yes, what is the vision impairment? G lasses, D oes the patient have a cognition impairment? N o. F all Risk: History H ave you had any falls with injury in the past year? N o, H ave you had two or more falls in the past year? N o. S DAVID Questions: SDOH Questions I n the past year have you been worried about losing housing? N o, I n the past year have you or any family members you live with been unable to get any of the following when it was really needed? Check all that apply: N one. S ymptom(s): patient is a 63 yo male here for annual follow up. has been doing well, complainingof left earache for one day. * ROS: G eneral/Constitutional: Change in appetite d enies. C hills d enies. F ever d enies. O phthalmologic: Blurred vision d enies. D ischarge d enies. P ain d enies. E NT: Decreased hearing d enies. S ore throat d enies.?Swollen glands d enies. E ndocrine: Cold intolerance d enies. E xcessive thirst d enies. H eat intolerance d enies. W eight loss d enies. R espiratory: Cough d enies. S hortness of breath at rest d enies. S hortness of breath with exertion d enies. W heezing d enies. C ardiovascular: Chest pain at rest d enies. C hest pain with exertion?denies. I rregular heartbeat d enies. S hortness of breath d enies. ? G astrointestinal: Abdominal pain d enies. C hange in bowel habits d enies. D iarrhea d enies. N ausea d enies. R ectal bleeding d enies. V omiting d enies . G enitourinary: Blood in urine d enies. D ifficulty urinating d enies. F requent urination d enies. M usculoskeletal: Painful joints d enies. W eakness d enies. ? S kin: Dry skin d enies. I tching d enies. D enies?Mole(s), changes in moles, new moles or any lesions of concern. D enies P hotosensitivity. R rubén d enies. N eurologic: Dizziness d enies. F ainting d enies. H eadache?denies. * Medical History: * Surgical History: * Hospitalization/Major Diagno stic Procedure: * Family History: F ather: alive 85 yrs, diagnosed with Hypertension. M other: alive 80 yrs, diagnosed with Hypertension, Asthma. 2 brother(s) . 1 son(s) , 1 daughter(s) . . Denies mental health/substance abuse family history, Denies mental health/substance abuse family history. * Social History: T obacco Use: T obacco Use/Smoking P atient is a n onsmoker, A dditional Findings: Tobacco Non-User C urrent non-smoker, currently using no form of tobacco. D rugs/Alcohol: A lcohol Screen D id you have a drink containing alcohol in the past year? Y es, H ow often did you have a drink containing alcohol in the past year? M onthly or less (1 point), H ow many drinks did you have on a typical day when you were drinking in the past year? 1 or 2 drinks (0 point), H ow often did you have 6 or more drinks on one occasion in the past year? N ever (0 point), P oints 1 , I nterpretation N egative. M iscellaneous: C affeine: yes, frequency:, 2-3 cups per day. Children: yes. 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 Home smoke detector use: yes. Housing: owning. Living with: spouse. Marital status: . no Travel outside of the [place]. * Medications: T akingKetoconazole 2 % Cream 1 application Externally Once a dayMedication List reviewed and reconciled with the patientTaking Ketoconazole 2 % Cream 1 application Externally Once a dayMedication List reviewed and reconciled with the patient * Allergies: N .K.D.A.yes[Allergies Verified] Objective: * Vitals: H t: 63, Wt:161, BMI:28.52, BP:114/70 weight is down 8 pounds since 10-28-23. * P ast Orders: L ab:PSA,Total (Free>4and<10) (Order Date - 02/28/2024) (Collection Date - 02/28/2024) Value Reference Range PSA,Total (Free>4and<10) 1.08 0.00-4.00 - ng/ mL L ab:UA ClnCatch+Micro w/rflx Cult (Order Date - 02/28/2024) (Collection Date - 02/28/2024) Value Reference Range Color Urine Yellow - Appearance Urine Clear - PH 7.5 5.0-9.0 - Glucose Urine UA Negative Negative - mg/dL Urine Blood Negative Negative - Specific Grant - Urine 1.015 1.005-1.025 - Urine Protein Negative Neg-Trace - mg/dL Urine Ketones Negative Negative - mg/dL Nitrite Urine Negative Negative - Leukocyte Esterase Urine Trace A Negative - RBC Urine 0-2 0-2 - /HPF WBC Urine 0-5 0-5 - /HPF Squamous Epithelial Cell Urine 0-2 0-2 - /HP F Bacteria Urine None Seen None Seen - Hyaline Casts Urine 0-2 0-2 - /LPF L ab:Complete Blood Count Auto Diff (Order Date - 02/28/2024) (Collection Date - 02/28/2024) Value Reference Range White Blood Count 8.4 4.8-10.8 - X10*3/uL Red Blood Count 4.70 4.60-5.80 - X10*6/uL Hemoglobin 14.0 14.0-18.0 - g/dl Hematocrit 42.1 42.0-52.0 - % Mean Corpuscular Volume 89.6 80.0-98.0 - fL Mean Corpuscular Hemoglobin 29.8 27.0-33.0 - pg Mean Corpuscular HGB Conc 33.3 31.0-36.0 - g/ dl Red Cell Distribution Width 14.6 11.0-16.0 - % Platelet Count 250 160-400 - X10*3/uL Mean Platelet Volume 12.5 H 9.4-12.4 - fL Neutrophils Percent Auto 47.5 45-73 - % Imm Gran Pct Auto 0.1 0.0-0.4 - % Lymphocytes Percent Auto 34.8 20-40 - % Monocytes Percent Auto 14.1 H 2-11 - % Eosinophils Percent Auto 2.7 0-4 - % Basophils Percent Auto 0.8 0-2 - % NRBC Pct Auto 0.0 0.0-0.2 - /100WBC Neutrophils Absolute Auto 4.0 2.0-8.3 - x10* 3/uL Imm Gran Abs Auto 0.01 0.00-0.03 - X10*3/uL Lymphocytes Absolute Auto 2.9 1.2-4.9 - X10* 3/uL Monocytes Absolute Auto 1.2 0.1-1.2 - X10*3/ uL Eosinophils Absolute Auto 0.2 0.0-0.4 - X10* 3/uL Basophils Absolute Auto 0.1 0.0-0.2 - X10*3/ uL NRBC Abs Auto 0.000 0.0-0.012 - X10*3/uL L ab:Comprehensive Rogers. Panel Fast (Order Date - 02/28/2024) (Collection Date - 02/28/2024) Value Reference Range Sodium 141 135-145 - mmol/L Bilirubin Total 0.7 0.0-1.0 - mg/dL Aspartate Amino Transferase 23 5-37 - U/L Alanine Aminotransferase 9 0-40 - U/L Total Protein 7.4 6.5-8.0 - g/dL Albumin Level 4.0 3.5-5.0 - g/dL Alkaline Phosphatase 54 39-117 - U/L Potassium 4.0 3.3-5.1 - mmol/L Chloride 105 96-108 - mmol/L Carbon Dioxide 29 22-29 - mmol/L Anion Gap 11 L 12-20 - Blood Urea Nitrogen 18 H 9-16 - mg/dL Creatinine 0.81 0.5-1.4 - mg/dL Estimated Glomerular Filt Rate > 60 - Glucose Fasting 92 60-99 - mg/dL Calcium 9.7 8.4-10.2 - mg/dL L ab:Lipid Panel (Order Date - 02/28/2024) (Collection Date - 02/28/2024) Value Reference Range Triglycerides 103 <150 - mg/dL Cholesterol 194 <200 - mg/dL LDL Cholesterol Calculated 108 H <100 - mg/dL HDL Cholesterol 66 >40 - mg/dL * Examination: G eneral Examination: GENERAL APPEARANCE: w ell developed, well nourished, in no acute distress. HEAD: n ormocephalic, atraumatic. EYES: p upils equal, round, reactive to light and accommodation, sclera non-icteric. EARS: n ormal. ORAL CAVITY: m ucosa moist. THROAT: c lear. NECK/THYROID: n qasim supple, full range of motion, no cervical lymphadenopathy, no bruits. SKIN: w arm and dry, no suspicious lesions. HEART: r egular rate and rhythm, S1, S2 normal, no murmurs.? LUNGS: c lear to auscultation bilaterally. ABDOMEN: s oft, nontender, nondistended, bowel sounds present, normal, no organomegaly , no masses palpable. RECTAL EXAM: n ormal tone, no external hemorrhoids, no masses palpable, prostate normal, stool guaiac negative. MALE GENITOURINARY: c ircumcised, no testicular mass, testes descended bilaterally. EXTREMITIES: n o clubbing, cyanosis, or edema. NEUROLOGIC: n onfocal, motor strength normal upper and lower extremities, sensory exam intact. Assessment: * Assessment: 1. A dult general medical exam - Z00.00 (Primary) 2 . C olon cancer screening - Z12.11?3. E ncounter for screening for depression - Z13.31 Plan: * Treatment: 2. C olon cancer screening L AB: Occult Blood, Stool, Guaiac N egative Value Reference Range O ccult Blood, Stool, Guaiac Neg Notes: guaiac negative.??3.?Encounter for screening for depression? Notes: negative screen.?? * Procedure Codes: 8 2270 TEST FOR BLOOD, FECES * Preventive Medicine: Counseling: C are goal follow-up plan: C jennifernseling for abnormal BMI provided?Yes, Juan wise Normal BMI Follow-up Kayla jansen encouragement to exercise. * Follow Up: 1 Year * * Sign off status: Completed true * Provider: Kayla Menon MD Date: 0 03/13/2024 Generated for Linnea crooks/Olvin/Zay on: 0 03/08/2025 11:13 AM EDT History and Physical Notes * HPI (History of Present Illness) Category Sub-Category Detail Notes Category Not es Symptom(s) patient is a 63 yo male here for annual follow up. has been doing well, complainingof left earache for one day Depression Screening PHQ-9 Little interest or pleasure in doing things: Not at all Feeling down, depressed, or hopeless: No t at all Trouble falling or staying asleep, or sl eeping too much: Not at all Feeling tired or having little energy: N ot at all Poor appetite or overeating: Not at all Feeling bad about yourself o r that you are a failure, or have let yourself or your family down: Not at all Trouble concentrating on thi ngs, such as reading the newspaper or watching television: Not at all Moving or speaking so slowly that other people could have noticed; or the opposite, being so fidgety or restless that you have been moving around a lot more than usual: Not at all Thoughts that you would be b amy off or of hurting yourself in some way: Not at all Total Score: 0 Interpretation and Intervention Depression Trudi murillo Findings: Negative Follow-Up for Depression: : review of PH Q-9 found negative result, no follow-up needed SDOH Questions SDOH Questions In the past year have you been worried about losing housing?: No In the past year have you or any family members you live with been unable to get any of the following when it was really needed? Check all that apply:: None Fall Risk History Have you had any falls with injury i n the past year?: No Have you had two or more falls in the st year?: No Communication Needs Communication Needs Does the patient have a hearing impairment: No Does the patient have a vision impairmen t?: Yes If yes, what is the vision impairment?: Glasses Does the patient have a cognition impair ment?: No Examination Category Sub-Category Detail Notes Category Not es General Examination GENERAL APPEARANCE: well dev eloped, well nourished, in no acute distress HEAD: normocephalic, atrau matic EYES: pupils equal, round, reactive to light and accommodation, sclera non-icteric EARS: normal THROAT: clear NECK/THYROID: neck supple, full ra nge of motion, no cervical lymphadenopathy, no bruits HEART: regular rate and rhy thm, S1, S2 normal, no murmurs LUNGS: clear to auscultatio n bilaterally ABDOMEN: soft, nontender, non distended, bowel sounds present, normal, no organomegaly , no masses palpable NEUROLOGIC: nonfocal, motor stre ngth normal upper and lower extremities, sensory exam intact SKIN: warm and dry, no rufina picious lesions EXTREMITIES: no clubbing, cyanosi s, or edema MALE GENITOURINARY: circumcised, no test icular mass, testes descended bilaterally RECTAL EXAM: normal tone, no exte rnal hemorrhoids, no masses palpable, prostate normal, stool guaiac negative ORAL CAVITY: mucosa moist
--- OUTSIDE RECORDS SUMMARY | 2024-04-27 06:50 | XMS_ITS ---
Author Organization [facility] Address [address] [place] [address] Care Team Providers Care Stem Crusher Name Role Phone Amador Menon MD Primary Care Provider Singh Saldana Jr REASON FOR VISIT screening Encounters Encounter Location Date Provider Diagnosis [facility] Out[facility] [address] [place], [place] [phone] 04/27/2024 Singh Samuels Jr Colon cancer screening Z12.11 and Colon polyps K63.5 Assessments Encounter Date Diagnosis (ICD Code) Assessment Notes Treatment Notes Treatment Clinical Notes Section Notes 04/27/2024 Colon cancer screening (ICD-10 - Z12.11) 04/27/2024 Colon polyps (ICD-10 - K63.5) Plan Of Treatment No Information Progress Notes * NAM DALEYDOB:[birth year] (64 yo M)Acc No.[id number]:04/27/2024 COLON WITH MAC Patient: NAM DEL RIO Provider: Matthew Samuels MD :1960 A ge:63 Y S ex:Male Date:04/27/2024 Address:[address] [place] [address] Pcp:Amador Menon MD Subjective: * Chief Complaints: * 1 . Screening. * Medical History: Objective: * Vitals: Assessment: * Assessment: 1. C olon cancer screening - Z12.11 (Primary) 2 . C olon polyps - K63.5? Plan: * Treatment: * Procedure Codes: 4 5380 COLONOSCOPY AND BIOPSY * * The named appointment provid er may or may not be the originator of this progress note, and it is not deemed complete until electronically signed by the appointment provider. Sign off status: Pending * Provider: Matthew Samuels MD Date: 0 04/27/2024 Generated for Linnea crooks/Olvin/Ingrisitting on: 0 03/08/2025 11:13 AM EDT
[2025-03-08 10:40] LABS: MANUAL DIFF FLAG NO
[2025-03-08 11:05] LABS: Appearance Urine Clear; Glucose Urine UA Negative (Negative); Hematocrit 41.9 % (42.0-52.0); Hemoglobin 13.9 g/dl (14.0-18.0); Imm Gran Abs Auto 0.01 X10*3/uL (0.00-0.03); Imm Gran Pct Auto 0.1 % (0.0-0.4); Lymphocytes Absolute Auto 2.6 X10*3/uL (1.2-4.9); Mean Corpuscular HGB Conc 33.2 g/dl (31.0-36.0); Mean Corpuscular Hemoglobin 29.6 pg (27.0-33.0); Mean Corpuscular Volume 89.3 fL (80.0-98.0); NRBC Abs Auto 0.000 X10*3/uL (0.0-0.012); NRBC Pct Auto 0.0 /100WBC (0.0-0.2); PH 7.5 (5.0-9.0); Platelet Count 249 X10*3/uL (160-400); Red Blood Count 4.69 X10*6/uL (4.60-5.80); Specific Gravity - Urine 1.010 (1.005-1.025); UMIC TRIGGER UACC YES; White Blood Count 7.2 X10*3/uL (4.8-10.8)
[2025-03-08 11:14] LABS: Alanine Aminotransferase 10 U/L (0-40); Albumin Level 4.1 g/dL (3.5-5.0); Alkaline Phosphatase 51 U/L (39-117); Anion Gap 11 (12-20); Aspartate Amino Transferase 25 U/L (5-37); Blood Urea Nitrogen 14 mg/dL (9-16); Calcium 9.7 mg/dL (8.4-10.2); Carbon Dioxide 30 mmol/L (22-29); Chloride 102 mmol/L (96-108); Cholesterol 184 mg/dL (<200); Estimated Glomerular Filt Rate > 60; HDL Cholesterol 66 mg/dL (>40); Potassium 4.7 mmol/L (3.3-5.1); Sodium 138 mmol/L (135-145); Total Protein 7.1 g/dL (6.5-8.0); Triglycerides 58 mg/dL (<150)
[2025-03-08 11:36] LABS: PSA,Total (Free>4and<10) 0.96 ng/mL (0.00-4.00)
== END 2025-03-08 10:39 | disposition home or self-care (01) ==
LOC: HO.LNP 10:38
PROVIDERS: Visit Provider Internal Medicine
DX: Z00.00 Encounter for general adult medical examination without abnormal findings (principal); Z12.5 Encounter for screening for malignant neoplasm of prostate
CPT/HCPCS: 80053; 80061; 81001; 84153; 85025